=== PATIENT | male | born 1925 | race Caucasian/White ===

== ENCOUNTER 2017-04-10 23:50 | Inpatient (IN) | payer MEDICARE, BC ==
[2017-04-10] MEDS ORDERED: Sodium Chloride 0.9% 10 ML Syringe FLUSH PRN (23:52)
[2017-04-10] MEDS ORDERED: Sodium Chloride 0.9% 2.5 ML Syringe FLUSH PRN (23:52)
[2017-04-11] MEDS ORDERED: Albuterol/Ipratropium 3.0-0.5 MG/3 ML Neb Soln NEB ONE (00:11)
--- NOTE | 2017-04-11 00:34 | EDM.PDOC ---
ED HPI GENERAL MEDICAL PROBLEM - General Chief Complaint: Respiratory Problem Stated Complaint: UNK Time Seen by Provider: 04/10/17 23:57 - History of Present Illness INITIAL COMMENTS - FREE TEXT/NARRATIVE: HISTORY AND PHYSICAL: History of present illness: Patient is 89-year-old white male sent from [place] with cough shortness of breath and hypoxemia he has advanced dementia and is extremely poor historian is been no reported vomiting diarrhea or other complaints Review of systems: As per history of present illness and below otherwise all systems reviewed and negative. Past medical history: As per history of present illness and as reviewed below otherwise noncontributory. Surgical history: As per history of present illness and as reviewed below otherwise noncontributory. Social history: No reported history of drug or alcohol abuse. Family history: As per history of present illness and as reviewed below otherwise noncontributory. Physical exam: HEENT: Atraumatic, normocephalic, pupils reactive, negative for conjunctival pallor or scleral icterus, mucous membranes moist, throat clear, neck supple, nontender, trachea midline. Lungs: Coarse with scattered rhonchi rare wheezing noted, breath sounds equal bilaterally, chest nontender. Heart: S1S2, regular, negative for clicks, rubs, or JVD. Abdomen: Soft, nondistended, nontender. Negative for masses or hepatosplenomegaly. Negative for costovertebral tenderness. Pelvis: Stable nontender. Genitourinary: Deferred. Rectal: Deferred. Extremities: Atraumatic, negative for cords or calf pain. Neurovascular unremarkable. Neuro: Awake, alert, moves all extremities limited but grossly nonfocal exam Diagnostics: CBC CMP troponin EKG chest x-ray influenza screen blood culture 2 BNP UA urine culture sensitivity Therapeutics: IV O2 monitor albuterol ipratropium nebulizer Impression: #1 dyspnea #2 hypoxemia #3 DNR Definitive disposition and diagnosis as appropriate pending reevaluation and review of above. - Related Data Allergies Allergy/AdvReac Type Severity Reaction Status Date / Time No Known Allergies Allergy Verified 06/26/13 09:08 Home Meds: Home Meds Acetaminophen [Tylenol] 650 mg PO Q4H PRN 04/11/17 [History] Bisacodyl 0 mg RC 04/11/17 [History] amLODIPine Besylate [Amlodipine Besylate] 5 mg PO DAILY 04/11/17 [History] ED ROS GENERAL - Review of Systems Review Of Systems: ROS reveals no pertinent complaints other than HPI. ED EXAM, GENERAL - Physical Exam Exam: See Below (See dictation) Course - Vital Signs Last Recorded V/S: Last Vital Signs Temp 36.3 C 04/11/17 01:30 Pulse 88 04/11/17 01:30 Resp 20 04/11/17 01:30 BP 101/65 04/11/17 01:30 Pulse Ox 94 L 04/11/17 01:30 - Orders/Labs/Meds Orders: Active Orders 24 hr Category Date Time Status Cardiac Monitoring [RC] . DIRECTED Care 04/10/17 23:52 Active EKG Documentation Completion [RC] STAT Care 04/10/17 23:52 Active Oxygen Therapy [RC] ASDIRECTED Care 04/10/17 23:52 Active Pulse Oximetry [RC] ASDIRECTED Care 04/10/17 23:52 Active RT Aerosol Therapy [RC] ASDIRECTED Care 04/11/17 00:11 Active Chest 1V Frontal [CR] Stat Exams 04/10/17 23:52 Taken CULTURE BLOOD [BC] Stat Lab 04/10/17 23:59 Results CULTURE URINE [RM] Stat Lab 04/10/17 23:57 Uncollected UA W/MICROSCOPIC [URIN] Stat Lab 04/10/17 23:52 Uncollected Levofloxacin/Dextrose 5%-Water [Levaquin in D5W 750 MG/ Med 04/11/17 01:52 Active 150 ML] 750 mg Premix Bag 1 bag IV ONETIME Sodium Chloride 0.9% [Saline Flush] Med 04/10/17 23:52 Active 10 ml FLUSH ASDIRECTED PRN Sodium Chloride 0.9% [Saline Flush] Med 04/10/17 23:52 Active 2.5 ml FLUSH ASDIRECTED PRN Blood Culture x2 Reflex Set [OM.PC] Stat Oth 04/10/17 23:56 Ordered Saline Lock Insert [OM.PC] Stat Oth 04/10/17 23:52 Ordered Medication Orders Levofloxacin/Dextrose 750 mg/ (Premix) 150 mls @ 100 mls/hr IV ONETIME ONE Stop: 04/11/17 03:21 Sodium Chloride (Saline Flush) 10 ml FLUSH ASDIRECTED PRN PRN Reason: Keep Vein Open Sodium Chloride (Saline Flush) 2.5 ml FLUSH ASDIRECTED PRN PRN Reason: Keep Vein Open Labs: Laboratory Tests 04/11/17 04/11/17 04/11/17 Range/Units 00:00 00:00 00:00 WBC 15.67 H (4.0-11.0) K/uL RBC 3.89 L (4.50-5.90) M/uL Hgb 11.8 L (13.0-17.0) g/dL Hct 35.8 L (38.0-50.0) % MCV 92.0 (80.0-98.0) fL MCH 30.3 (27.0-32.0) pg MCHC 33.0 (31.0-37.0) g/dL RDW Std Deviation 46.1 (28.0-62.0) fl RDW Coeff of Eladio 14 (11.0-15.0) % Plt Count 325 (150-400) K/uL MPV 9.50 (7.40-12.00) fL Neut % (Auto) 82.9 H (48.0-80.0) % Lymph % (Auto) 7.2 L (16.0-40.0) % Armstrong % (Auto) 9.5 (0.0-15.0) % Eos % (Auto) 0.3 (0.0-7.0) % Baso % (Auto) 0.1 (0.0-1.5) % Neut # (Auto) 13.0 H (1.4-5.7) K/uL Lymph # (Auto) 1.1 (0.6-2.4) K/uL Armstrong # (Auto) 1.5 H (0.0-0.8) K/uL Eos # (Auto) 0.1 (0.0-0.7) K/uL Baso # (Auto) 0.0 (0.0-0.1) K/uL Nucleated RBC % 0.0 /100WBC Nucleated RBCs # 0 K/uL INR 1.16 D-Dimer, Quantitative 0.99 H (0.0-0.52) mg/LFEU Sodium 135 L (136-146) mmol/L Potassium 4.4 (3.5-5.1) mmol/L Chloride 105 (98-110) mmol/L Carbon Dioxide 20 L (21-31) mmol/L BUN 33 H (6.0-23.0) mg/dL Creatinine 1.3 (0.6-1.5) mg/dL Est Cr Clr Drug Dosing TNP Estimated GFR (MDRD) 52.0 ml/min Glucose 135 H (60-110) mg/dL Calcium 8.4 L (8.8-10.8) mg/dL Total Bilirubin 0.6 (0.1-1.5) mg/dL AST 20 (5-40) IU/L ALT 18 (8-54) IU/L Alkaline Phosphatase 98 (40-150) Troponin I < 0.10 (0.0-0.29) NG/ML B-Natriuretic Peptide (<100) PG/ML Total Protein 6.9 (6.0-8.0) g/dL Albumin 3.4 (3.4-4.8) g/dL Globulin 3.5 (2.0-3.5) g/dL Albumin/Globulin Ratio 1.0 L (1.3-2.8) 04/11/17 Range/Units 00:00 WBC (4.0-11.0) K/uL RBC (4.50-5.90) M/uL Hgb (13.0-17.0) g/dL Hct (38.0-50.0) % MCV (80.0-98.0) fL MCH (27.0-32.0) pg MCHC (31.0-37.0) g/dL RDW Std Deviation (28.0-62.0) fl RDW Coeff of Eladio (11.0-15.0) % Plt Count (150-400) K/uL MPV (7.40-12.00) fL Neut % (Auto) (48.0-80.0) % Lymph % (Auto) (16.0-40.0) % Armstrong % (Auto) (0.0-15.0) % Eos % (Auto) (0.0-7.0) % Baso % (Auto) (0.0-1.5) % Neut # (Auto) (1.4-5.7) K/uL Lymph # (Auto) (0.6-2.4) K/uL Armstrong # (Auto) (0.0-0.8) K/uL Eos # (Auto) (0.0-0.7) K/uL Baso # (Auto) (0.0-0.1) K/uL Nucleated RBC % /100WBC Nucleated RBCs # K/uL INR D-Dimer, Quantitative (0.0-0.52) mg/LFEU Sodium (136-146) mmol/L Potassium (3.5-5.1) mmol/L Chloride (98-110) mmol/L Carbon Dioxide (21-31) mmol/L BUN (6.0-23.0) mg/dL Creatinine (0.6-1.5) mg/dL Est Cr Clr Drug Dosing Estimated GFR (MDRD) ml/min Glucose (60-110) mg/dL Calcium (8.8-10.8) mg/dL Total Bilirubin (0.1-1.5) mg/dL AST (5-40) IU/L ALT (8-54) IU/L Alkaline Phosphatase (40-150) Troponin I (0.0-0.29) NG/ML B-Natriuretic Peptide 468 H (<100) PG/ML Total Protein (6.0-8.0) g/dL Albumin (3.4-4.8) g/dL Globulin (2.0-3.5) g/dL Albumin/Globulin Ratio (1.3-2.8) Meds: Medications Generic Name Dose Route Start Last Admin Trade Name Freq PRN Reason Stop Dose Admin Levofloxacin/Dextrose 750 mg/ 150 mls @ 100 mls/hr 04/11/17 01:52 Premix IV 04/11/17 03:21 ONETIME ONE Sodium Chloride 10 ml 04/10/17 23:52 Saline Flush FLUSH ASDIRECTED PRN Keep Vein Open Sodium Chloride 2.5 ml 04/10/17 23:52 Saline Flush FLUSH ASDIRECTED PRN Keep Vein Open Discontinued Medications Generic Name Dose Route Start Last Admin Trade Name Freq PRN Reason Stop Dose Admin Albuterol/Ipratropium 3 ml 04/11/17 00:11 04/11/17 00:17 Duoneb 3.0-0.5 Mg/3 Ml NEB 04/11/17 00:12 3 ml ONETIME ONE Administration Departure - Departure Time of Disposition: 02:18 Disposition: Admitted As Inpatient 68 Condition: Good Clinical Impression: Hypoxemia, Pneumonia - Discharge Information Referrals: PCP,Unknown [Primary Care Provider] - Forms: ED Department Discharge - My Orders Last 24 Hours: My Active Orders 04/10/17 23:52 Cardiac Monitoring [RC] . DIRECTED EKG Documentation Completion [RC] STAT Oxygen Therapy [RC] ASDIRECTED Pulse Oximetry [RC] ASDIRECTED Chest 1V Frontal [CR] Stat UA W/MICROSCOPIC [URIN] Stat Sodium Chloride 0.9% [Saline Flush] 10 ml FLUSH ASDIRECTED PRN Sodium Chloride 0.9% [Saline Flush] 2.5 ml FLUSH ASDIRECTED PRN Saline Lock Insert [OM.PC] Stat 04/10/17 23:56 Blood Culture x2 Reflex Set [OM.PC] Stat 04/10/17 23:57 CULTURE URINE [RM] Stat 04/10/17 23:59 CULTURE BLOOD [BC] Stat 04/11/17 00:11 RT Aerosol Therapy [RC] ASDIRECTED 04/11/17 01:52 Levofloxacin/Dextrose 5%-Water [Levaquin in D5W 750 MG/150 ML] 750 mg Premix Bag 1 bag IV ONETIME - Assessment/Plan Last 24 Hours: My Active Orders 04/10/17 23:52 Cardiac Monitoring [RC] . DIRECTED EKG Documentation Completion [RC] STAT Oxygen Therapy [RC] ASDIRECTED Pulse Oximetry [RC] ASDIRECTED Chest 1V Frontal [CR] Stat UA W/MICROSCOPIC [URIN] Stat Sodium Chloride 0.9% [Saline Flush] 10 ml FLUSH ASDIRECTED PRN Sodium Chloride 0.9% [Saline Flush] 2.5 ml FLUSH ASDIRECTED PRN Saline Lock Insert [OM.PC] Stat 04/10/17 23:56 Blood Culture x2 Reflex Set [OM.PC] Stat 04/10/17 23:57 CULTURE URINE [RM] Stat 04/10/17 23:59 CULTURE BLOOD [BC] Stat 04/11/17 00:11 RT Aerosol Therapy [RC] ASDIRECTED 04/11/17 01:52 Levofloxacin/Dextrose 5%-Water [Levaquin in D5W 750 MG/150 ML] 750 mg Premix Bag 1 bag IV ONETIME
[2017-04-11 00:53] LABS: CHLORIDE,CL 105 mmol/L (98-110); SODIUM,NA 135 mmol/L (136-146)
[2017-04-11] MEDS ORDERED: Levofloxacin/Dextrose 5%-Water 750 MG in Premix Bag 1 BAG IV ONE (01:52)
[2017-04-11] MEDS ORDERED: Furosemide 40 MG/4 ML VIAL IVPUSH ONE (02:24)
[2017-04-11] MEDS ORDERED: Sodium Chloride 0.9% 1,000 ML IV SCH (03:45)
[2017-04-11] MEDS ORDERED: Piperacillin/Tazobactam 4.5 GM in Sodium Chloride 0.9% 100 ML IV SCH (08:15)
[2017-04-11] MEDS: Piperacillin/Tazobactam 3.375 GM in Sodium Chloride 0.9% 50 ML IV SCH ×3 (08:45→20:15)
[2017-04-11] MEDS: Albuterol/Ipratropium 3.0-0.5 MG/3 ML Neb Soln NEB SCH ×5 (08:45→23:07)
--- NOTE | 2017-04-11 13:11 | US ---
Lower extremity venous Doppler Bilateral lower extremity venous Doppler was performed demonstrating normal augmentation and spontane ity phasicity and absent pulsatility of lower cavity veins with no thrombosis. There are small Lewis' s cysts bilaterally that on the right measuring 3.9 x 1.7 cm and that on the left measuring 5.1 x 1.8 cm Impression: No evidence of deep vein thrombosis. Bilateral Lewis's cysts
[2017-04-11] MEDS ORDERED: Sodium Chloride 0.9% 500 ML IV ONE (14:30)
[2017-04-11] MEDS ORDERED: Sodium Chloride 0.9% 500 ML IV SCH (14:30)
[2017-04-11] MEDS ORDERED: LORazepam 2 MG/ML SDV IVPUSH ONE (14:47)
--- NOTE | 2017-04-11 15:20 | PCM.HP ---
H&P History of Present Illness - General Date of Service: 04/11/17 Source of Information: Patient History Limitations: Reports: Altered Mental Status - History of Present Illness Initial Comments - Free Text/Narative: 89-year-old male [facility] resident and represented to the emergency department with shortness of breath found to be hypoxic and tachycardic, tachypneic. History gathering is limited secondary to the patient's baseline dementia. When asked, patient told nursing staff of ongoing shortness of breath , left lower extremity pain when touched. Patient was placed on telemetry, indicating atrial fibrillation. EKG is pending. Talking to the patient at the bedside, he denies any fevers chills, pain. He does appear to be confused and is able to minimally answer questions. Does not appear to be in any acute distress. ER workup: Leukocytosis white blood cell count 15.67 Mild anemia 11.8 hemoglobin Elevated d-dimer at 0.99 Elevated BUNs 33. Creatinine 1.3 Calcium 8.4 BNP 468 Urinalysis positive for UTI Chest x-ray indicates a left lower lobe pneumonia. Right Leg Pain Score (Numeric/FACES): 4 - Related Data Allergies/Adverse Reactions: Allergies Allergy/AdvReac Type Severity Reaction Status Date / Time No Known Allergies Allergy Verified 06/26/13 09:08 Home Medications: Home Meds Acetaminophen 650 mg PO DAILY 04/11/17 [History] Acetaminophen [Tylenol] 650 mg PO Q4H PRN 04/11/17 [History] Bisacodyl 0 mg RC 04/11/17 [History] Glucosamine Sulfate 500 mg PO BID 04/11/17 [History] Levothyroxine Sodium [Synthroid] 100 mcg PO DAILY 04/11/17 [History] Loperamide HCl [Imodium A-D] 2 mg PO ASDIRECTED 04/11/17 [History] Losartan/Hydrochlorothiazide [Losartan-HCTZ 100-25 MG] 1 each PO DAILY 04/11/17 [History] Lutein/Min/Vit C/Vit E Acetate [Ocuvite Lutein] 1 cap PO DAILY 04/11/17 [History ] Magnesium Hydroxide [Milk of Magnesia] 30 ml PO DAILY PRN 04/11/17 [History] Potassium Chloride [place] Er 04/11/17 [History] amLODIPine Besylate [Amlodipine Besylate] 5 mg PO DAILY 04/11/17 [History] Past Medical History HEENT History: Reports: Hard of Hearing, Impaired Vision, Other (See Below) Other HEENT History: Conjunctivitis. Macular Degenaration. on Hearing Aid Cardiovascular History: Reports: Hypertension Respiratory History: Reports: None Gastrointestinal History: Reports: None Genitourinary History: Reports: None Musculoskeletal History: Reports: Osteoarthritis, Other (See Below) Other Musculoskeletal History: gait & mobility abnormalities Neurological History: Reports: Other (See Below) Other Neuro History: Dementia Psychiatric History: Reports: Dementia Endocrine/Metabolic History: Reports: Hypothyroidism Hematologic History: Reports: None Immunologic History: Reports: None Oncologic (Cancer) History: Reports: None Dermatologic History: Reports: None - Infectious Disease History Infectious Disease History: Reports: Other (See Below) Other Infectious Disease History: July't remember Social & Family History - Family History Family Medical History: Noncontributory - Tobacco Use Smoking Status *Q: Unknown Ever Smoked Tobacco Use Comment: Patient has dementia. Second Hand Smoke Exposure: No - Recreational Drug Use Recreational Drug Use: No H&P Review of Systems - Review of Systems: Review Of Systems: Unable To Obtain Exam - Exam Exam: See Below - Vital Signs Vital Signs: Last Vital Signs Temp 36.8 C 04/11/17 08:00 Pulse 109 H 04/11/17 08:00 Resp 20 04/11/17 08:00 BP 109/69 04/11/17 08:00 Pulse Ox 91 L 04/11/17 08:00 Weight: 73 kg - Exam Quality Assessment: Supplemental Oxygen General: Alert, Oriented, Cooperative HEENT: Conjunctiva Clear, Hearing Intact, Mucosa Moist & [place], TMs Clear Neck: Supple, Trachea Midline Lungs: Decreased Breath Sounds Cardiovascular: Regular Rate, Normal S1, Normal S2 GI/Abdominal Exam: Normal Bowel Sounds, Soft Back Exam: Normal Inspection Extremities: Normal Inspection, Normal Range of Motion, Non-Tender, Pedal Edema Skin: Warm Neurological: Cranial Nerves Intact Neuro Extensive - Mental Status: Alert, Oriented x3 Psychiatric: Alert, Normal Affect, Normal Mood - Patient Data Lab Results Last 24 hrs: Laboratory Results - last 24 hr 04/11/17 04/11/17 Range/Units 04:02 13:45 Lactate 1.4 (0.20-2.00) mmol/L Urine Color YELLOW Urine Appearance CLEAR Urine pH 5.5 (5.0-8.0) Ur Specific [place] 1.010 (1.001-1.035) Urine Protein TRACE (NEGATIVE) mg/dL Urine Glucose (UA) NEGATIVE (NEGATIVE) mg/dL Urine Ketones NEGATIVE (NEGATIVE) mg/dL Urine Occult Blood LARGE H (NEGATIVE) Urine Nitrite POSITIVE H (NEGATIVE) Urine Bilirubin NEGATIVE (NEGATIVE) Urine Urobilinogen 0.2 (<2.0) EU/dL Ur Leukocyte Esterase MODERATE (NEGATIVE) Urine RBC 1-3 (0-2/HPF) Urine WBC 80-120 (0-5/HPF) Ur Epithelial Cells NOT SEEN (NONE-FEW) Urine Bacteria 2+ H (NEGATIVE) Result Diagrams: 04/11/17 00:00 04/11/17 00:00 *Q Meaningful Use (ADM) - VTE *Q VTE Criteria *Q: - Stroke *Q Stroke Criteria *Q: - AMI *Q AMI Criteria *Q: Problem List Initiated/Reviewed/Updated: Yes Orders Last 24hrs: Active Orders 24 hr Category Date Time Status RT Aerosol Therapy [RC] ASDIRECTED Care 04/11/17 08:06 Active Telemetry Monitoring [Cardiac Monitoring] [RC] . Care 04/11/17 13:33 Active DIRECTED Regular Diet [DIET] Diet 04/11/17 Breakfast Active Ang Chest [CT] Stat Exams 04/11/17 13:36 Ordered VANCOMYCIN TROUGH [CHEM] Routine Lab 04/13/17 08:00 Ordered Albuterol/Ipratropium [DuoNeb 3.0-0.5 MG/3 ML] Med 04/11/17 08:06 Active 3 ml NEB Q4HRRT Levofloxacin/Dextrose 5%-Water [Levaquin in D5W 750 MG/ Med 04/12/17 12:00 Active 150 ML] 750 mg Premix Bag 1 bag IV Q48H Piperacillin/Tazobactam [Piperacil-Tazobact] 3.375 gm Med 04/11/17 08:15 Active Sodium Chloride 0.9% [Normal Saline] 50 ml IV Q6H Sodium Chloride 0.9% [Normal Saline] 500 ml Med 04/11/17 14:30 Active IV ASDIRECTED Vancomycin Pharmacy to Dose [Pharmacy to Dose - Med 04/11/17 08:15 Active Vancomycin] 1 dose .XX ASDIRECTED Vancomycin [Vancocin] 1 gm Med 04/11/17 09:00 Active Sodium Chloride 0.9% [Normal Saline] 250 ml IV Q12H Medication Orders Albuterol/Ipratropium (Duoneb 3.0-0.5 Mg/3 Ml) 3 ml NEB Q4HRRT COUNTS INCLUDE 234 BEDS AT THE [facility] Last Admin: 04/11/17 10:24 Dose: 3 ml Admin: 04/11/17 08:45 Dose: 3 ml Levofloxacin/Dextrose 750 mg/ (Premix) 150 mls @ 100 mls/hr IV Q48H COUNTS INCLUDE 234 BEDS AT THE [facility] Piperacillin Sod/Tazobactam (Sod 3.375 gm/ Sodium Chloride) 50 mls @ 50 mls/hr IV Q6H COUNTS INCLUDE 234 BEDS AT THE [facility] Last Admin: 04/11/17 08:45 Dose: 50 mls/hr Vancomycin HCl 1 gm/ Sodium (Chloride) 250 mls @ 166.667 mls/hr IV Q12H COUNTS INCLUDE 234 BEDS AT THE [facility] Last Admin: 04/11/17 09:55 Dose: 166.667 mls/hr Sodium Chloride (Normal Saline) 500 mls @ 500 mls/hr IV ASDIRECTED COUNTS INCLUDE 234 BEDS AT THE [facility] Sodium Chloride (Saline Flush) 10 ml FLUSH ASDIRECTED PRN PRN Reason: Keep Vein Open Sodium Chloride (Saline Flush) 2.5 ml FLUSH ASDIRECTED PRN PRN Reason: Keep Vein Open Vancomycin HCl (Pharmacy To Dose - Vancomycin) 1 dose .XX ASDIRECTED COUNTS INCLUDE 234 BEDS AT THE [facility] Assessment/Plan Comment:: Assessment: #1. Acute hypoxic respiratory failure secondary to pneumonia, CHF #2. UTI #3. Leukocytosis secondary to 1 and 2 #4. Elevated d-dimer #5. Elevated BNP secondary to CHF exacerbation #6. hypotension #7. A. Fibrillation Plan: #1. Admit to the ICU. Cardiac telemetry. Vital signs per floor routine. Regular diet. Telemetry showed atrial fibrillation will obtain a EKG. It doesnt appear that he has chronic A. Fib according to the chart. Will try to compare to old EKG. Consider digoxin. #2. IV Vancomycin, Levofloxacin, Zosyn for pneumonia, uti #3. Wells criteria indicates 1.5 points, indicating low likelihood of PE. A CT angiogram will not be ordered. #4. Hold off on lasix scheduling given hypotension, tachycardia. Will try to diurese based on clinical picture.
[2017-04-11] MEDS ORDERED: Digoxin 500 MCG/2 ML Amp IVPUSH ONE (15:50)
--- NOTE | 2017-04-11 17:14 | CR ---
EXAM DATE: 04/11/17 PATIENT'S AGE: 89 Patient: KUNAL VALDIVIA Facility: [place], [place] Site . Site : [id number] Study: XRay Chest [id number]/29/[id number] 1:05:52 AM Ordering Physician: Doctor Salcedo Final Report: INDICATION: Shortness of breath TECHNIQUE: Chest radiograph 1 view COMPARISON: None FINDINGS: Mediastinum: Moderate cardiomegaly is present with pulmonary vascular congestion. The mediastinum is normal in appearance. Lungs: Consolidation in the left lung base is present with small left pleural effusion. No pneumothorax is identified. Bones and soft tissue: Unremarkable for age. IMPRESSION: 1. Consolidation in the left lung base is present with small left pleural effusion. These findings can be seen with atelectasis and/or pneumonia. Dictated by Gerhard Washington MD @ 04/11/2017 1:13:24 AM Dictated by: Gerhard Washington MD @ 04/11/2017 01:13:29 (Electronic Signature) Report Signed by Proxy. CINTHYA
[2017-04-11] MEDS: Enoxaparin 40 MG/0.4 ML Syringe SUBCUT SCH (19:25)
[2017-04-12] MEDS: Albuterol/Ipratropium 3.0-0.5 MG/3 ML Neb Soln NEB SCH ×6 (01:55→21:26)
[2017-04-12] MEDS: Piperacillin/Tazobactam 3.375 GM in Sodium Chloride 0.9% 50 ML IV SCH ×4 (02:00→20:48)
[2017-04-12] MEDS ORDERED: Digoxin 500 MCG/2 ML Amp IVPUSH ONE (09:14)
--- NOTE | 2017-04-12 09:34 | CR ---
Portable chest History: Dyspnea Comparison: April 11 chest x-ray Findings: There is cardiomegaly left pleural effusion basal atelectasis probable small right effusion and increased caliber of upper lobe pulmonary vessels. Although there is some atelectasis at the lef t base the aggregate findings are most consistent with congestive heart failure. Impression: Congestive heart failure with increasing left effusion
[2017-04-12] MEDS ORDERED: Furosemide 40 MG Tab PO ONE (11:27)
[2017-04-12] MEDS ORDERED: Magnesium Sulfate/Water 4 GM in Premix Bag 1 BAG IV ONE (11:27)
[2017-04-12] MEDS ORDERED: Potassium Chloride 20 MEQ Tab.ER PO ONE (11:58)
[2017-04-12] MEDS ORDERED: Levofloxacin/Dextrose 5%-Water 750 MG in Premix Bag 1 BAG IV SCH (12:00)
--- NOTE | 2017-04-12 14:10 | PCM.PN ---
- General Info Date of Service: 04/12/17 Subjective Update: Patient's transfer status appears to be worsening given that he is now on 7 L high flow. The patient has baseline dementia so it's difficult to get much out of him. He tells me that he is doing completely fine for his age. He denies shortness of breath, chest pain or any complaints at all. Repeat chest x-ray shows an increase in left pleural effusion. - Review of Systems General: Reports: Other (See history of present illness. Limited review of systems secondary to dementia) - Patient Data Vitals - Most Recent: Last Vital Signs Temp 36.4 C 04/12/17 11:08 Pulse 84 04/12/17 11:08 Resp 20 04/12/17 11:08 BP 124/76 04/12/17 11:08 Pulse Ox 94 L 04/12/17 11:08 Weight - Most Recent: 73 kg I&O - Last 24 Hours: Intake & Output 04/11/17 04/12/17 04/12/17 22:59 06:59 14:59 Intake Total 1300 600 550 Balance 1300 600 550 Lab Results Last 24 Hours: Laboratory Results - last 24 hr 04/12/17 04/12/17 04/12/17 Range/Units 05:22 05:22 05:22 WBC 11.18 H (4.0-11.0) K/uL RBC 3.61 L (4.50-5.90) M/uL Hgb 10.8 L (13.0-17.0) g/dL Hct 32.7 L (38.0-50.0) % MCV 90.6 (80.0-98.0) fL MCH 29.9 (27.0-32.0) pg MCHC 33.0 (31.0-37.0) g/dL RDW Std Deviation 46.0 (28.0-62.0) fl RDW Coeff of Eladio 14 (11.0-15.0) % Plt Count 259 (150-400) K/uL MPV 9.30 (7.40-12.00) fL Neut % (Auto) 74.1 (48.0-80.0) % Lymph % (Auto) 12.3 L (16.0-40.0) % [place] % (Auto) 12.8 (0.0-15.0) % Eos % (Auto) 0.5 (0.0-7.0) % Baso % (Auto) 0.3 (0.0-1.5) % Neut # (Auto) 8.3 H (1.4-5.7) K/uL Lymph # (Auto) 1.4 (0.6-2.4) K/uL [place] # (Auto) 1.4 H (0.0-0.8) K/uL Eos # (Auto) 0.1 (0.0-0.7) K/uL Baso # (Auto) 0.0 (0.0-0.1) K/uL Nucleated RBC % 0.0 /100WBC Nucleated RBCs # 0 K/uL Sodium 137 (136-146) mmol/L Potassium 3.9 (3.5-5.1) mmol/L Chloride 107 (98-110) mmol/L Carbon Dioxide 20 L (21-31) mmol/L BUN 33 H (6.0-23.0) mg/dL Creatinine 1.4 (0.6-1.5) mg/dL Est Cr Clr Drug Dosing 36.93 mL/min Estimated GFR (MDRD) 47.7 ml/min Glucose 83 (60-110) mg/dL Calcium 7.9 L (8.8-10.8) mg/dL Magnesium 1.4 L (1.5-2.3) mEq/L Med Orders - Current: Current Medications Albuterol/Ipratropium (Duoneb 3.0-0.5 Mg/3 Ml) 3 ml NEB Q4HRRT [facility] Last Admin: 04/12/17 13:17 Dose: 3 ml Enoxaparin Sodium (Lovenox) 40 mg SUBCUT Q24H [facility] Last Admin: 04/11/17 19:25 Dose: 40 mg Levofloxacin/Dextrose 750 mg/ (Premix) 150 mls @ 100 mls/hr IV Q48H [facility] Last Admin: 04/12/17 12:18 Dose: 100 mls/hr Piperacillin Sod/Tazobactam (Sod 3.375 gm/ Sodium Chloride) 50 mls @ 50 mls/hr IV Q6H [facility] Last Admin: 04/12/17 08:02 Dose: 50 mls/hr Vancomycin HCl 1 gm/ Sodium (Chloride) 250 mls @ 166.667 mls/hr IV Q12H [facility] Last Admin: 04/12/17 09:02 Dose: 166.667 mls/hr Magnesium Sulfate 4 gm/ Premix 100 mls @ 25 mls/hr IV ONETIME ONE Stop: 04/12/17 15:26 Last Admin: 04/12/17 11:54 Dose: 25 mls/hr Sodium Chloride (Saline Flush) 10 ml FLUSH ASDIRECTED PRN PRN Reason: Keep Vein Open Sodium Chloride (Saline Flush) 2.5 ml FLUSH ASDIRECTED PRN PRN Reason: Keep Vein Open Vancomycin HCl (Pharmacy To Dose - Vancomycin) 1 dose .XX ASDIRECTED [facility] Discontinued Medications Albuterol/Ipratropium (Duoneb 3.0-0.5 Mg/3 Ml) 3 ml NEB ONETIME ONE Stop: 04/11/17 00:12 Last Admin: 04/11/17 00:17 Dose: 3 ml Digoxin (Lanoxin) 250 mcg IVPUSH ONETIME ONE Stop: 04/11/17 15:51 Last Admin: 04/11/17 15:59 Dose: 250 mcg Digoxin (Lanoxin) 250 mcg IVPUSH ONETIME ONE Stop: 04/12/17 09:15 Last Admin: 04/12/17 09:49 Dose: 250 mcg Furosemide (Lasix) 20 mg IVPUSH NOW ONE Stop: 04/11/17 02:25 Last Admin: 04/11/17 02:40 Dose: 20 mg Furosemide (Lasix) 40 mg PO ONETIME ONE Stop: 04/12/17 11:28 Last Admin: 04/12/17 11:54 Dose: 40 mg Levofloxacin/Dextrose 750 mg/ (Premix) 150 mls @ 100 mls/hr IV ONETIME ONE Stop: 04/11/17 03:21 Last Admin: 04/11/17 02:15 Dose: 100 mls/hr Sodium Chloride (Normal Saline) 1,000 mls @ 125 mls/hr IV ASDIRECTED [facility] Last Admin: 04/11/17 04:16 Dose: 125 mls/hr Piperacillin Sod/Tazobactam (Sod 4.5 gm/ Sodium Chloride) 100 mls @ 100 mls/hr IV Q6H [facility] Sodium Chloride (Normal Saline) 500 mls @ 500 mls/hr IV ONETIME ONE Stop: 04/11/17 15:29 Last Admin: 04/11/17 14:30 Dose: 500 mls/hr Lorazepam (Ativan) 1 mg IVPUSH ONETIME ONE Stop: 04/11/17 14:48 Last Admin: 04/11/17 15:50 Dose: Not Given Potassium Chloride (Klor-Con M20) 40 meq PO ONETIME ONE Stop: 04/12/17 11:59 Last Admin: 04/12/17 12:37 Dose: 40 meq - Exam Quality Assessment: Supplemental Oxygen General: Alert HEENT: Pupils Equal, Pupils Reactive Neck: Supple Lungs: Decreased Breath Sounds Cardiovascular: Regular Rate, Regular Rhythm GI/Abdominal Exam: Normal Bowel Sounds, Soft Extremities: Pedal Edema (Trace) Peripheral Pulses: 3+: Posterior Tibial (L), Posterior Tibial (R) Psy/Mental Status: Alert, Normal Affect, Normal Mood - Problem List Review Problem List Initiated/Reviewed/Updated: Yes - My Orders Last 24 Hours: My Active Orders 04/11/17 13:33 Telemetry Monitoring [Cardiac Monitoring] [RC] . DIRECTED 04/11/17 15:33 Code Status [Resuscitation Status] Routine 04/11/17 19:00 Enoxaparin [Lovenox] 40 mg SUBCUT Q24H 04/12/17 11:27 Magnesium Sulfate/Water [Magnesium Sulfate 4 GM in Water 100 ML] 4 gm Premix Bag 1 bag IV ONETIME - Plan Plan:: Assessment: #1. Acute hypoxic respiratory failure secondary to pneumonia, CHF with a worsening left-sided pleural effusion #2. UTI #3. Leukocytosis secondary to 1 and 2 #4. hypotension #5. A. Fibrillation Plan: #1. In regards to his atrial fibrillation, we will given another one-time dose of IV 250 mcg of digoxin. He received a dose yesterday evening but didn't appear to make much of a difference. #2. Continue IV antibiotics regimen #3. By mouth Lasix 40 mg 1 for CHF/pleural effusion. We'll see if this helps with his respiratory status. Given his hypotension, we will diurese him with caution.
--- NOTE | 2017-04-12 18:04 | PCM.SN ---
- Free Text/Narrative Note: Discussed patients status with daughter in person at the ICU and his other daughter currently in [place] over the phone. Went over the patients current status with them, and given circumstances, daughter in [place] states that Toan would wish not to be resuscitated or use any mechanical ventilation. She stated that he would prefer no CPR, and no intubation.
[2017-04-12] MEDS: Enoxaparin 40 MG/0.4 ML Syringe SUBCUT SCH (18:21)
[2017-04-13] MEDS: Albuterol/Ipratropium 3.0-0.5 MG/3 ML Neb Soln NEB SCH ×6 (02:58→23:26)
[2017-04-13] MEDS: Piperacillin/Tazobactam 3.375 GM in Sodium Chloride 0.9% 50 ML IV SCH (02:59)
[2017-04-13] MEDS ORDERED: Magnesium Sulfate/Water 2 GM in Premix Bag 1 BAG IV ONE (07:54)
[2017-04-13] MEDS ORDERED: Furosemide 40 MG Tab PO ONE (07:59)
[2017-04-13] MEDS ORDERED: Ciprofloxacin in D5W 400 MG in Premix Bag 1 BAG IV SCH ×2 (08:00)
[2017-04-13] MEDS: Levofloxacin 250 MG Tab PO SCH (10:30)
--- NOTE | 2017-04-13 11:04 | PCM.PN ---
- General Info Date of Service: 04/13/17 Subjective Update: 89-year-old male in ICU right now with ongoing acute hypoxic respiratory failure requiring more oxygen via nasal cannula. Patient does not appear to be in any acute distress. The last 24 hours, an echocardiogram was obtained, a repeat chest x-ray shows worsening pleural effusion, blood cultures are positive for Escherichia coli. This morning at the bedside, patient does have dementia but he did states that he feels comfortable right now. - Review of Systems General: Reports: Other (baseline dementia. Difficult to obtain a full review of systems. Does not appear to be in any acute pain or distress.) - Patient Data Vitals - Most Recent: Last Vital Signs Temp 36.4 C 04/13/17 08:00 Pulse 108 H 04/13/17 08:00 Resp 21 H 04/13/17 08:00 BP 128/78 04/13/17 08:00 Pulse Ox 95 04/13/17 08:00 Weight - Most Recent: 73 kg I&O - Last 24 Hours: Intake & Output 04/12/17 04/13/17 04/13/17 22:59 06:59 14:59 Intake Total 900 100 50 Balance 900 100 50 Lab Results Last 24 Hours: Laboratory Results - last 24 hr 04/12/17 04/13/17 04/13/17 Range/Units 05:22 05:17 05:17 WBC 9.45 (4.0-11.0) K/uL RBC 3.69 L (4.50-5.90) M/uL Hgb 10.9 L (13.0-17.0) g/dL Hct 33.3 L (38.0-50.0) % MCV 90.2 (80.0-98.0) fL MCH 29.5 (27.0-32.0) pg MCHC 32.7 (31.0-37.0) g/dL RDW Std Deviation 45.8 (28.0-62.0) fl RDW Coeff of Eladio 14 (11.0-15.0) % Plt Count 257 (150-400) K/uL MPV 9.10 (7.40-12.00) fL Neut % (Auto) 70.9 (48.0-80.0) % Lymph % (Auto) 11.1 L (16.0-40.0) % [place] % (Auto) 15.6 H (0.0-15.0) % Eos % (Auto) 2.1 (0.0-7.0) % Baso % (Auto) 0.3 (0.0-1.5) % Neut # (Auto) 6.7 H (1.4-5.7) K/uL Lymph # (Auto) 1.1 (0.6-2.4) K/uL [place] # (Auto) 1.5 H (0.0-0.8) K/uL Eos # (Auto) 0.2 (0.0-0.7) K/uL Baso # (Auto) 0.0 (0.0-0.1) K/uL Nucleated RBC % 0.0 /100WBC Nucleated RBCs # 0 K/uL Sodium 138 (136-146) mmol/L Potassium 4.0 (3.5-5.1) mmol/L Chloride 109 (98-110) mmol/L Carbon Dioxide 19 L (21-31) mmol/L BUN 32 H (6.0-23.0) mg/dL Creatinine 1.4 (0.6-1.5) mg/dL Est Cr Clr Drug Dosing 36.93 mL/min Estimated GFR (MDRD) 47.7 ml/min Glucose 92 (60-110) mg/dL Calcium 7.6 L (8.8-10.8) mg/dL Magnesium 1.4 L 1.9 (1.5-2.3) mEq/L [place]th Results Last 24 Hours: Microbiology 04/13/17 09:46 Anaerobic Blood Culture - Final Blood - Venous - Lab Draw 04/13/17 09:34 Anaerobic Blood Culture - Final Blood - Venous 04/11/17 04:02 Urine Culture - Final Urine, Clean Catch MIXED CHANDRA >100,000 CFU/ML Med Orders - Current: Current Medications Albuterol/Ipratropium (Duoneb 3.0-0.5 Mg/3 Ml) 3 ml NEB Q4HRRT [facility] Last Admin: 04/13/17 09:57 Dose: Not Given Enoxaparin Sodium (Lovenox) 40 mg SUBCUT Q24H [facility] Last Admin: 04/12/17 18:21 Dose: 40 mg Levofloxacin (Levaquin) 750 mg PO Q48H [facility] Last Admin: 04/13/17 10:30 Dose: 750 mg Sodium Chloride (Saline Flush) 10 ml FLUSH ASDIRECTED PRN PRN Reason: Keep Vein Open Sodium Chloride (Saline Flush) 2.5 ml FLUSH ASDIRECTED PRN PRN Reason: Keep Vein Open Discontinued Medications Albuterol/Ipratropium (Duoneb 3.0-0.5 Mg/3 Ml) 3 ml NEB ONETIME ONE Stop: 04/11/17 00:12 Last Admin: 04/11/17 00:17 Dose: 3 ml Digoxin (Lanoxin) 250 mcg IVPUSH ONETIME ONE Stop: 04/11/17 15:51 Last Admin: 04/11/17 15:59 Dose: 250 mcg Digoxin (Lanoxin) 250 mcg IVPUSH ONETIME ONE Stop: 04/12/17 09:15 Last Admin: 04/12/17 09:49 Dose: 250 mcg Furosemide (Lasix) 20 mg IVPUSH NOW ONE Stop: 04/11/17 02:25 Last Admin: 04/11/17 02:40 Dose: 20 mg Furosemide (Lasix) 40 mg PO ONETIME ONE Stop: 04/12/17 11:28 Last Admin: 04/12/17 11:54 Dose: 40 mg Furosemide (Lasix) 40 mg PO ONETIME ONE Stop: 04/13/17 08:00 Last Admin: 04/13/17 08:27 Dose: 40 mg Levofloxacin/Dextrose 750 mg/ (Premix) 150 mls @ 100 mls/hr IV ONETIME ONE Stop: 04/11/17 03:21 Last Admin: 04/11/17 02:15 Dose: 100 mls/hr Sodium Chloride (Normal Saline) 1,000 mls @ 125 mls/hr IV ASDIRECTED [facility] Last Admin: 04/11/17 04:16 Dose: 125 mls/hr Levofloxacin/Dextrose 750 mg/ (Premix) 150 mls @ 100 mls/hr IV Q48H [facility] Last Admin: 04/12/17 12:18 Dose: 100 mls/hr Piperacillin Sod/Tazobactam (Sod 4.5 gm/ Sodium Chloride) 100 mls @ 100 mls/hr IV Q6H [facility] Piperacillin Sod/Tazobactam (Sod 3.375 gm/ Sodium Chloride) 50 mls @ 50 mls/hr IV Q6H [facility] Last Admin: 04/13/17 02:59 Dose: 50 mls/hr Vancomycin HCl 1 gm/ Sodium (Chloride) 250 mls @ 166.667 mls/hr IV Q12H [facility] Last Admin: 04/12/17 21:10 Dose: 166.667 mls/hr Sodium Chloride (Normal Saline) 500 mls @ 500 mls/hr IV ONETIME ONE Stop: 04/11/17 15:29 Last Admin: 04/11/17 14:30 Dose: 500 mls/hr Magnesium Sulfate 4 gm/ Premix 100 mls @ 25 mls/hr IV ONETIME ONE Stop: 04/12/17 15:26 Last Admin: 04/12/17 11:54 Dose: 25 mls/hr Magnesium Sulfate 2 gm/ Premix 50 mls @ 50 mls/hr IV ONETIME ONE Stop: 04/13/17 08:53 Last Admin: 04/13/17 08:27 Dose: 50 mls/hr Ciprofloxacin/Dextrose 400 mg/ (Premix) 200 mls @ 200 mls/hr IV Q12H [facility] Last Admin: 04/13/17 09:30 Dose: Not Given Lorazepam (Ativan) 1 mg IVPUSH ONETIME ONE Stop: 04/11/17 14:48 Last Admin: 04/11/17 15:50 Dose: Not Given Potassium Chloride (Klor-Con M20) 40 meq PO ONETIME ONE Stop: 04/12/17 11:59 Last Admin: 04/12/17 12:37 Dose: 40 meq Vancomycin HCl (Pharmacy To Dose - Vancomycin) 1 dose .XX ASDIRECTED [facility] - Exam Quality Assessment: Supplemental Oxygen General: Alert, Oriented HEENT: Pupils Equal Neck: Supple Lungs: Clear to Auscultation, Normal Respiratory Effort Cardiovascular: Regular Rate, Regular Rhythm GI/Abdominal Exam: Normal Bowel Sounds, Soft Extremities: No Pedal Edema Peripheral Pulses: 2+: Posterior Tibial (L), Posterior Tibial (R) Skin: Warm Psy/Mental Status: Alert, Normal Affect, Normal Mood - Problem List Review Problem List Initiated/Reviewed/Updated: Yes - My Orders Last 24 Hours: My Active Orders 04/12/17 18:00 Code Status [Resuscitation Status] Routine 04/12/17 18:15 Tariq Catheter Insertion [Insert Urinary Catheter] [OM.PC] Q24H 01/31/18 Echo Comp wo Cont [US] Urgent 04/13/17 09:19 Blood Culture x2 Reflex Set [OM.PC] Stat 04/13/17 09:30 Levofloxacin [Levaquin] 750 mg PO Q48H 04/13/17 09:34 CULTURE BLOOD [BC] Stat 04/13/17 09:46 CULTURE BLOOD [BC] Stat - Plan Plan:: Assessment: #1. Acute hypoxic respiratory failure secondary to CHF exacerbation with left pleural effusion noted on x-ray #2. blood cultures positive for Escherichia coli #3. Leukocytosis secondary to #2 that has resolved #4. hypotension, tachycardia that is showing mild improvement #5. A. Fibrillation Plan: #1. IV vancomycin and Zosyn and Levaquin have been stopped. He is switched to by mouth Levaquin. Will get repeat blood cultures today. #2. Attempt to insert Tariq catheter for strict I's and O's #3. By mouth 40 mg Lasix once #4. Follow up on echocardiogram
[2017-04-13] MEDS: Enoxaparin 40 MG/0.4 ML Syringe SUBCUT SCH (18:35)
[2017-04-13] MEDS: Bisacodyl 10 MG Supp RECTAL PRN (18:38)
[2017-04-14] MEDS: Albuterol/Ipratropium 3.0-0.5 MG/3 ML Neb Soln NEB SCH ×6 (04:15→21:35)
[2017-04-14] MEDS ORDERED: Magnesium Sulfate/Water 2 GM in Premix Bag 1 BAG IV ONE (07:59)
[2017-04-14] MEDS ORDERED: Furosemide 40 MG Tab PO ONE (08:00)
[2017-04-14] MEDS: Furosemide 40 MG/4 ML VIAL IVPUSH SCH ×2 (09:34→22:34)
--- NOTE | 2017-04-14 17:23 | PCM.PN ---
- General Info Date of Service: 04/14/17 Subjective Update: increase requirement for oxygen supplementation. Patient appears to be disoriented which is his baseline. No acute overnight events reported by nursing. There has been difficulty with placing a Tariq which was ordered secondary to strict I's and O's. Echocardiogram is pending report. - Review of Systems General: Reports: Other (see history of present illness) - Patient Data Vitals - Most Recent: Last Vital Signs Temp 36.9 C 04/14/17 16:00 Pulse 83 04/14/17 16:00 Resp 20 04/14/17 16:00 BP 131/62 04/14/17 16:00 Pulse Ox 93 L 04/14/17 16:00 Weight - Most Recent: 72.575 kg I&O - Last 24 Hours: Intake & Output 04/14/17 04/14/17 04/14/17 06:59 14:59 22:59 Intake Total 20 120 Output Total 755 Balance 20 -635 Lab Results Last 24 Hours: Laboratory Results - last 24 hr 04/14/17 04/14/17 Range/Units 06:27 06:27 WBC 11.38 H (4.0-11.0) K/uL RBC 4.11 L (4.50-5.90) M/uL Hgb 12.2 L (13.0-17.0) g/dL Hct 37.4 L (38.0-50.0) % MCV 91.0 (80.0-98.0) fL MCH 29.7 (27.0-32.0) pg MCHC 32.6 (31.0-37.0) g/dL RDW Std Deviation 46.1 (28.0-62.0) fl RDW Coeff of Eladio 14 (11.0-15.0) % Plt Count 311 (150-400) K/uL MPV 9.20 (7.40-12.00) fL Neut % (Auto) 72.8 (48.0-80.0) % Lymph % (Auto) 12.4 L (16.0-40.0) % [place] % (Auto) 14.1 (0.0-15.0) % Eos % (Auto) 0.4 (0.0-7.0) % Baso % (Auto) 0.3 (0.0-1.5) % Neut # (Auto) 8.3 H (1.4-5.7) K/uL Lymph # (Auto) 1.4 (0.6-2.4) K/uL [place] # (Auto) 1.6 H (0.0-0.8) K/uL Eos # (Auto) 0.1 (0.0-0.7) K/uL Baso # (Auto) 0.0 (0.0-0.1) K/uL Nucleated RBC % 0.0 /100WBC Nucleated RBCs # 0 K/uL Sodium 137 (136-146) mmol/L Potassium 4.0 (3.5-5.1) mmol/L Chloride 104 (98-110) mmol/L Carbon Dioxide 22 (21-31) mmol/L BUN 27 H (6.0-23.0) mg/dL Creatinine 1.3 (0.6-1.5) mg/dL Est Cr Clr Drug Dosing 39.78 mL/min Estimated GFR (MDRD) 52.0 ml/min Glucose 84 (60-110) mg/dL Calcium 7.9 L (8.8-10.8) mg/dL Magnesium 1.8 (1.5-2.3) mEq/L Parth Results Last 24 Hours: Microbiology 04/13/17 09:46 Aerobic Blood Culture - Preliminary Blood - Venous - Lab Draw NO GROWTH AFTER 1 DAY Anaerobic Blood Culture - Final 04/13/17 09:34 Aerobic Blood Culture - Preliminary Blood - Venous NO GROWTH AFTER 1 DAY Anaerobic Blood Culture - Final Med Orders - Current: Current Medications Albuterol/Ipratropium (Duoneb 3.0-0.5 Mg/3 Ml) 3 ml NEB Q4HRRT [facility] Last Admin: 04/14/17 13:45 Dose: 3 ml Bisacodyl (Dulcolax) 10 mg RECTAL BID PRN PRN Reason: Constipation Last Admin: 04/13/17 18:38 Dose: 10 mg Enoxaparin Sodium (Lovenox) 40 mg SUBCUT Q24H [facility] Last Admin: 04/13/17 18:35 Dose: 40 mg Furosemide (Lasix) 40 mg IVPUSH Q12H [facility] Last Admin: 04/14/17 09:34 Dose: 40 mg Levofloxacin (Levaquin) 750 mg PO Q48H [facility] Last Admin: 04/13/17 10:30 Dose: 750 mg Sodium Chloride (Saline Flush) 10 ml FLUSH ASDIRECTED PRN PRN Reason: Keep Vein Open Sodium Chloride (Saline Flush) 2.5 ml FLUSH ASDIRECTED PRN PRN Reason: Keep Vein Open Discontinued Medications Albuterol/Ipratropium (Duoneb 3.0-0.5 Mg/3 Ml) 3 ml NEB ONETIME ONE Stop: 04/11/17 00:12 Last Admin: 04/11/17 00:17 Dose: 3 ml Digoxin (Lanoxin) 250 mcg IVPUSH ONETIME ONE Stop: 04/11/17 15:51 Last Admin: 04/11/17 15:59 Dose: 250 mcg Digoxin (Lanoxin) 250 mcg IVPUSH ONETIME ONE Stop: 04/12/17 09:15 Last Admin: 04/12/17 09:49 Dose: 250 mcg Furosemide (Lasix) 20 mg IVPUSH NOW ONE Stop: 04/11/17 02:25 Last Admin: 04/11/17 02:40 Dose: 20 mg Furosemide (Lasix) 40 mg PO ONETIME ONE Stop: 04/12/17 11:28 Last Admin: 04/12/17 11:54 Dose: 40 mg Furosemide (Lasix) 40 mg PO ONETIME ONE Stop: 04/13/17 08:00 Last Admin: 04/13/17 08:27 Dose: 40 mg Furosemide (Lasix) 40 mg PO ONETIME ONE Stop: 04/14/17 08:01 Last Admin: 04/14/17 10:00 Dose: Not Given Levofloxacin/Dextrose 750 mg/ (Premix) 150 mls @ 100 mls/hr IV ONETIME ONE Stop: 04/11/17 03:21 Last Admin: 04/11/17 02:15 Dose: 100 mls/hr Sodium Chloride (Normal Saline) 1,000 mls @ 125 mls/hr IV ASDIRECTED [facility] Last Admin: 04/11/17 04:16 Dose: 125 mls/hr Levofloxacin/Dextrose 750 mg/ (Premix) 150 mls @ 100 mls/hr IV Q48H [facility] Last Admin: 04/12/17 12:18 Dose: 100 mls/hr Piperacillin Sod/Tazobactam (Sod 4.5 gm/ Sodium Chloride) 100 mls @ 100 mls/hr IV Q6H [facility] Piperacillin Sod/Tazobactam (Sod 3.375 gm/ Sodium Chloride) 50 mls @ 50 mls/hr IV Q6H [facility] Last Admin: 04/13/17 02:59 Dose: 50 mls/hr Vancomycin HCl 1 gm/ Sodium (Chloride) 250 mls @ 166.667 mls/hr IV Q12H [facility] Last Admin: 04/12/17 21:10 Dose: 166.667 mls/hr Sodium Chloride (Normal Saline) 500 mls @ 500 mls/hr IV ONETIME ONE Stop: 04/11/17 15:29 Last Admin: 04/11/17 14:30 Dose: 500 mls/hr Magnesium Sulfate 4 gm/ Premix 100 mls @ 25 mls/hr IV ONETIME ONE Stop: 04/12/17 15:26 Last Admin: 04/12/17 11:54 Dose: 25 mls/hr Magnesium Sulfate 2 gm/ Premix 50 mls @ 50 mls/hr IV ONETIME ONE Stop: 04/13/17 08:53 Last Admin: 04/13/17 08:27 Dose: 50 mls/hr Ciprofloxacin/Dextrose 400 mg/ (Premix) 200 mls @ 200 mls/hr IV Q12H [facility] Last Admin: 04/13/17 09:30 Dose: Not Given Magnesium Sulfate 2 gm/ Premix 50 mls @ 25 mls/hr IV ONETIME ONE Stop: 04/14/17 09:58 Last Admin: 04/14/17 09:35 Dose: 25 mls/hr Lorazepam (Ativan) 1 mg IVPUSH ONETIME ONE Stop: 04/11/17 14:48 Last Admin: 04/11/17 15:50 Dose: Not Given Potassium Chloride (Klor-Con M20) 40 meq PO ONETIME ONE Stop: 04/12/17 11:59 Last Admin: 04/12/17 12:37 Dose: 40 meq Vancomycin HCl (Pharmacy To Dose - Vancomycin) 1 dose .XX ASDIRECTED [facility] - Exam Quality Assessment: Supplemental Oxygen General: Alert HEENT: Pupils Equal Neck: Supple Lungs: Clear to Auscultation Cardiovascular: Regular Rate, Regular Rhythm GI/Abdominal Exam: Normal Bowel Sounds, Soft Back Exam: Normal Inspection Extremities: No Pedal Edema, Normal Capillary Refill Skin: Warm Psy/Mental Status: Alert, Normal Affect - Problem List Review Problem List Initiated/Reviewed/Updated: Yes - Plan Plan:: Assessment: #1. Acute hypoxic respiratory failure secondary to CHF exacerbation with left pleural effusion noted on x-ray #2. blood cultures positive for Escherichia coli #3. Leukocytosis secondary to #2 that has resolved #4. hypotension, tachycardia that is showing improvement #5. A. Fibrillation Plan: #1. rrepeat blood cultures are negative thus far. Continue by mouth Levaquin #2. Follow-up on echocardiogram once available #3. Start IV Lasix 40 mg by mouth twice a day continue to monitor hemodynamic status.
[2017-04-14] MEDS: Enoxaparin 40 MG/0.4 ML Syringe SUBCUT SCH (20:00)
[2017-04-15] MEDS: Albuterol/Ipratropium 3.0-0.5 MG/3 ML Neb Soln NEB SCH ×5 (01:02→19:21)
[2017-04-15 06:22] LABS: CHLORIDE,CL 103 mmol/L (98-110); SODIUM,NA 140 mmol/L (136-146)
[2017-04-15] MEDS ORDERED: Potassium Chloride 20 MEQ Tab.ER PO ONE (08:37)
[2017-04-15] MEDS: Levofloxacin 250 MG Tab PO SCH (09:54)
[2017-04-15] MEDS: Furosemide 40 MG/4 ML VIAL IVPUSH SCH ×2 (10:00→21:05)
--- NOTE | 2017-04-15 11:37 | PCM.PN ---
- General Info Date of Service: 04/15/17 Subjective Update: No overnight events. No worsening altered mental status beyond baseline. Patient does not appear to be in any acute distress. Has been weaned down to 4 L oxygen via nasal cannula - Review of Systems General: Reports: Other (Unable to obtain secondary to dementia.) - Patient Data Vitals - Most Recent: Last Vital Signs Temp 36.4 C 04/15/17 08:00 Pulse 100 04/15/17 08:00 Resp 16 04/15/17 08:00 BP 124/72 04/15/17 08:00 Pulse Ox 95 04/15/17 08:00 Weight - Most Recent: 72.575 kg I&O - Last 24 Hours: Intake & Output 04/14/17 04/15/17 04/15/17 22:59 06:59 14:59 Intake Total 170 Output Total 755 Balance -585 Lab Results Last 24 Hours: Laboratory Results - last 24 hr 04/15/17 04/15/17 Range/Units 05:47 05:47 WBC 12.88 H (4.0-11.0) K/uL RBC 4.61 (4.50-5.90) M/uL Hgb 13.6 (13.0-17.0) g/dL Hct 41.7 (38.0-50.0) % MCV 90.5 (80.0-98.0) fL MCH 29.5 (27.0-32.0) pg MCHC 32.6 (31.0-37.0) g/dL RDW Std Deviation 46.2 (28.0-62.0) fl RDW Coeff of Eladio 14 (11.0-15.0) % Plt Count 323 (150-400) K/uL MPV 9.30 (7.40-12.00) fL Neut % (Auto) 76.5 (48.0-80.0) % Lymph % (Auto) 10.9 L (16.0-40.0) % [place] % (Auto) 11.8 (0.0-15.0) % Eos % (Auto) 0.6 (0.0-7.0) % Baso % (Auto) 0.2 (0.0-1.5) % Neut # (Auto) 9.9 H (1.4-5.7) K/uL Lymph # (Auto) 1.4 (0.6-2.4) K/uL [place] # (Auto) 1.5 H (0.0-0.8) K/uL Eos # (Auto) 0.1 (0.0-0.7) K/uL Baso # (Auto) 0.0 (0.0-0.1) K/uL Nucleated RBC % 0.0 /100WBC Nucleated RBCs # 0 K/uL Sodium 140 (136-146) mmol/L Potassium 3.0 L (3.5-5.1) mmol/L Chloride 103 (98-110) mmol/L Carbon Dioxide 25 (21-31) mmol/L BUN 25 H (6.0-23.0) mg/dL Creatinine 1.1 (0.6-1.5) mg/dL Est Cr Clr Drug Dosing 46.73 mL/min Estimated GFR (MDRD) > 60.0 ml/min Glucose 95 (60-110) mg/dL Calcium 8.3 L (8.8-10.8) mg/dL Parth Results Last 24 Hours: Microbiology 04/13/17 09:46 Aerobic Blood Culture - Preliminary Blood - Venous - Lab Draw NO GROWTH AFTER 2 DAYS Anaerobic Blood Culture - Final 04/13/17 09:34 Aerobic Blood Culture - Preliminary Blood - Venous NO GROWTH AFTER 2 DAYS Anaerobic Blood Culture - Final Med Orders - Current: Current Medications Albuterol/Ipratropium (Duoneb 3.0-0.5 Mg/3 Ml) 3 ml NEB Q4HRRT [facility] Last Admin: 04/15/17 10:24 Dose: Not Given Bisacodyl (Dulcolax) 10 mg RECTAL BID PRN PRN Reason: Constipation Last Admin: 04/13/17 18:38 Dose: 10 mg Enoxaparin Sodium (Lovenox) 40 mg SUBCUT Q24H [facility] Last Admin: 04/14/17 20:00 Dose: 40 mg Furosemide (Lasix) 40 mg IVPUSH Q12H [facility] Last Admin: 04/15/17 10:00 Dose: 40 mg Levofloxacin (Levaquin) 750 mg PO Q48H [facility] Last Admin: 04/15/17 09:54 Dose: 750 mg Levothyroxine Sodium (Synthroid) 100 mcg PO DAILY [facility] Sodium Chloride (Saline Flush) 10 ml FLUSH ASDIRECTED PRN PRN Reason: Keep Vein Open Sodium Chloride (Saline Flush) 2.5 ml FLUSH ASDIRECTED PRN PRN Reason: Keep Vein Open Discontinued Medications Albuterol/Ipratropium (Duoneb 3.0-0.5 Mg/3 Ml) 3 ml NEB ONETIME ONE Stop: 04/11/17 00:12 Last Admin: 04/11/17 00:17 Dose: 3 ml Digoxin (Lanoxin) 250 mcg IVPUSH ONETIME ONE Stop: 04/11/17 15:51 Last Admin: 04/11/17 15:59 Dose: 250 mcg Digoxin (Lanoxin) 250 mcg IVPUSH ONETIME ONE Stop: 04/12/17 09:15 Last Admin: 04/12/17 09:49 Dose: 250 mcg Furosemide (Lasix) 20 mg IVPUSH NOW ONE Stop: 04/11/17 02:25 Last Admin: 04/11/17 02:40 Dose: 20 mg Furosemide (Lasix) 40 mg PO ONETIME ONE Stop: 04/12/17 11:28 Last Admin: 04/12/17 11:54 Dose: 40 mg Furosemide (Lasix) 40 mg PO ONETIME ONE Stop: 04/13/17 08:00 Last Admin: 04/13/17 08:27 Dose: 40 mg Furosemide (Lasix) 40 mg PO ONETIME ONE Stop: 04/14/17 08:01 Last Admin: 04/14/17 10:00 Dose: Not Given Levofloxacin/Dextrose 750 mg/ (Premix) 150 mls @ 100 mls/hr IV ONETIME ONE Stop: 04/11/17 03:21 Last Admin: 04/11/17 02:15 Dose: 100 mls/hr Sodium Chloride (Normal Saline) 1,000 mls @ 125 mls/hr IV ASDIRECTED FORTUNATO Last Admin: 04/11/17 04:16 Dose: 125 mls/hr Levofloxacin/Dextrose 750 mg/ (Premix) 150 mls @ 100 mls/hr IV Q48H [facility] Last Admin: 04/12/17 12:18 Dose: 100 mls/hr Piperacillin Sod/Tazobactam (Sod 4.5 gm/ Sodium Chloride) 100 mls @ 100 mls/hr IV Q6H [facility] Piperacillin Sod/Tazobactam (Sod 3.375 gm/ Sodium Chloride) 50 mls @ 50 mls/hr IV Q6H [facility] Last Admin: 04/13/17 02:59 Dose: 50 mls/hr Vancomycin HCl 1 gm/ Sodium (Chloride) 250 mls @ 166.667 mls/hr IV Q12H [facility] Last Admin: 04/12/17 21:10 Dose: 166.667 mls/hr Sodium Chloride (Normal Saline) 500 mls @ 500 mls/hr IV ONETIME ONE Stop: 04/11/17 15:29 Last Admin: 04/11/17 14:30 Dose: 500 mls/hr Magnesium Sulfate 4 gm/ Premix 100 mls @ 25 mls/hr IV ONETIME ONE Stop: 04/12/17 15:26 Last Admin: 04/12/17 11:54 Dose: 25 mls/hr Magnesium Sulfate 2 gm/ Premix 50 mls @ 50 mls/hr IV ONETIME ONE Stop: 04/13/17 08:53 Last Admin: 04/13/17 08:27 Dose: 50 mls/hr Ciprofloxacin/Dextrose 400 mg/ (Premix) 200 mls @ 200 mls/hr IV Q12H [facility] Last Admin: 04/13/17 09:30 Dose: Not Given Magnesium Sulfate 2 gm/ Premix 50 mls @ 25 mls/hr IV ONETIME ONE Stop: 04/14/17 09:58 Last Admin: 04/14/17 09:35 Dose: 25 mls/hr Lorazepam (Ativan) 1 mg IVPUSH ONETIME ONE Stop: 04/11/17 14:48 Last Admin: 04/11/17 15:50 Dose: Not Given Potassium Chloride (Klor-Con M20) 40 meq PO ONETIME ONE Stop: 04/12/17 11:59 Last Admin: 04/12/17 12:37 Dose: 40 meq Potassium Chloride (Klor-Con M20) 40 meq PO ONETIME ONE Stop: 04/15/17 08:38 Last Admin: 04/15/17 09:50 Dose: 40 meq Vancomycin HCl (Pharmacy To Dose - Vancomycin) 1 dose .XX ASDIRECTED FORTUNATO - Exam Quality Assessment: Supplemental Oxygen General: Alert, Cooperative, No Acute Distress HEENT: Pupils Equal Neck: Supple Lungs: Clear to Auscultation, Normal Respiratory Effort Cardiovascular: Regular Rate, Regular Rhythm GI/Abdominal Exam: Normal Bowel Sounds Extremities: No Pedal Edema Skin: Warm Neurological: No New Focal Deficit Psy/Mental Status: Alert - Problem List Review Problem List Initiated/Reviewed/Updated: Yes - Plan Plan:: Assessment: #1. Acute hypoxic respiratory failure secondary to CHF exacerbation with left pleural effusion noted on x-ray #2. Leukocytosis #3. History of hypothyroidism Plan: #1. Chest x-ray, urinalysis. Will adjust antibiotic treatment if these come back for possible infection. Currently he is on IV levofloxacin. Titrate down oxygen as tolerated. #2. Continue diuresis as tolerated. #3. Restart home levothyroxine
--- NOTE | 2017-04-15 11:54 | CR ---
Portable chest Clinical history shortness of breath Comparison: prior chest x-ray Findings: There is persistence of cardiomegaly left pleural effusion and pulmonary parenchyma manifes tations of congestive heart failure. Impression: Persistent congestive heart failure
[2017-04-15] MEDS: Levothyroxine 100 MCG Tab PO SCH (12:15)
[2017-04-15] MEDS ORDERED: Acetaminophen 325 MG Tab PO PRN (12:32)
[2017-04-15] MEDS ORDERED: traMADol 50 MG Tab PO PRN (17:30)
[2017-04-15] MEDS: Enoxaparin 40 MG/0.4 ML Syringe SUBCUT SCH (21:04)
[2017-04-16] MEDS: Albuterol/Ipratropium 3.0-0.5 MG/3 ML Neb Soln NEB SCH ×7 (00:35→21:46)
[2017-04-16] MEDS ORDERED: Potassium Chloride 20 MEQ Tab.ER PO ONE (09:11)
[2017-04-16] MEDS ORDERED: Magnesium Sulfate/Water 4 GM in Premix Bag 1 BAG IV ONE (09:11)
[2017-04-16] MEDS: Furosemide 40 MG/4 ML VIAL IVPUSH SCH ×2 (09:55→21:11)
[2017-04-16] MEDS: Levothyroxine 100 MCG Tab PO SCH (09:57)
[2017-04-16] MEDS: Diltiazem 25 MG/5 ML SDV IVPUSH PRN (10:49)
[2017-04-16] MEDS ORDERED: cefTRIAXone 1 GM in Premix Bag 1 BAG IV SCH (11:15)
--- NOTE | 2017-04-16 12:15 | PCM.PN ---
- General Info Date of Service: 04/16/17 Subjective Update: Patient's oxygen requirement down to 2L. Appears to be clinically improving. Daughter in room when examined. Pt at baseline dementia. Awake, alert, not oriented to place or time. Denies any difficulty breathing, chest pain, palpitations. - Review of Systems General: Reports: Other (see HPI) - Patient Data Vitals - Most Recent: Last Vital Signs Temp 36.3 C 04/16/17 08:00 Pulse 108 H 04/16/17 08:00 Resp 18 04/16/17 10:21 BP 100/63 04/16/17 08:00 Pulse Ox 93 L 04/16/17 10:21 Weight - Most Recent: 72.575 kg I&O - Last 24 Hours: Intake & Output 04/15/17 04/16/17 04/16/17 22:59 06:59 14:59 Intake Total 1925 50 Output Total 50 Balance 1925 0 Lab Results Last 24 Hours: Laboratory Results - last 24 hr 04/15/17 04/16/17 04/16/17 Range/Units 11:50 06:05 06:05 WBC 13.72 H (4.0-11.0) K/uL RBC 4.54 (4.50-5.90) M/uL Hgb 13.5 (13.0-17.0) g/dL Hct 41.2 (38.0-50.0) % MCV 90.7 (80.0-98.0) fL MCH 29.7 (27.0-32.0) pg MCHC 32.8 (31.0-37.0) g/dL RDW Std Deviation 46.1 (28.0-62.0) fl RDW Coeff of Eladio 14 (11.0-15.0) % Plt Count 307 (150-400) K/uL MPV 9.20 (7.40-12.00) fL Neut % (Auto) 75.3 (48.0-80.0) % Lymph % (Auto) 12.3 L (16.0-40.0) % [place] % (Auto) 11.8 (0.0-15.0) % Eos % (Auto) 0.5 (0.0-7.0) % Baso % (Auto) 0.1 (0.0-1.5) % Neut # (Auto) 10.3 H (1.4-5.7) K/uL Lymph # (Auto) 1.7 (0.6-2.4) K/uL [place] # (Auto) 1.6 H (0.0-0.8) K/uL Eos # (Auto) 0.1 (0.0-0.7) K/uL Baso # (Auto) 0.0 (0.0-0.1) K/uL Nucleated RBC % 0.0 /100WBC Nucleated RBCs # 0 K/uL Sodium 140 (136-146) mmol/L Potassium 3.3 L (3.5-5.1) mmol/L Chloride 100 (98-110) mmol/L Carbon Dioxide 29 (21-31) mmol/L BUN 26 H (6.0-23.0) mg/dL Creatinine 1.2 (0.6-1.5) mg/dL Est Cr Clr Drug Dosing 42.84 mL/min Estimated GFR (MDRD) 57.0 ml/min Glucose 95 (60-110) mg/dL Calcium 8.2 L (8.8-10.8) mg/dL Magnesium 1.2 L (1.5-2.3) mEq/L Urine Color YELLOW Urine Appearance CLEAR Urine pH 6.0 (5.0-8.0) Ur Specific [place] 1.010 (1.001-1.035) Urine Protein NEGATIVE (NEGATIVE) mg/dL Urine Glucose (UA) NEGATIVE (NEGATIVE) mg/dL Urine Ketones NEGATIVE (NEGATIVE) mg/dL Urine Occult Blood TRACE-INTACT (NEGATIVE) Urine Nitrite NEGATIVE (NEGATIVE) Urine Bilirubin NEGATIVE (NEGATIVE) Urine Urobilinogen 0.2 (<2.0) EU/dL Ur Leukocyte Esterase TRACE (NEGATIVE) Urine RBC 0-1 (0-2/HPF) Urine WBC 0-1 (0-5/HPF) Ur Epithelial Cells RARE (NONE-FEW) Urine Bacteria RARE (NEGATIVE) Parth Results Last 24 Hours: Microbiology 04/13/17 09:46 Aerobic Blood Culture - Preliminary Blood - Venous - Lab Draw NO GROWTH AFTER 3 DAYS Anaerobic Blood Culture - Final 04/13/17 09:34 Aerobic Blood Culture - Preliminary Blood - Venous NO GROWTH AFTER 3 DAYS Anaerobic Blood Culture - Final Med Orders - Current: Current Medications Acetaminophen (Tylenol) 650 mg PO Q4H PRN PRN Reason: Pain Last Admin: 04/15/17 13:27 Dose: 650 mg Albuterol/Ipratropium (Duoneb 3.0-0.5 Mg/3 Ml) 3 ml NEB Q4HRRT [facility] Last Admin: 04/16/17 09:42 Dose: 3 ml Bisacodyl (Dulcolax) 10 mg RECTAL BID PRN PRN Reason: Constipation Last Admin: 04/13/17 18:38 Dose: 10 mg Diltiazem HCl (Diltiazem) 10 mg IVPUSH Q2HR PRN PRN Reason: Tachycardia Enoxaparin Sodium (Lovenox) 40 mg SUBCUT Q24H [facility] Last Admin: 04/15/17 21:04 Dose: 40 mg Furosemide (Lasix) 40 mg IVPUSH Q12H [facility] Last Admin: 04/16/17 09:55 Dose: 40 mg Magnesium Sulfate 4 gm/ Premix 100 mls @ 25 mls/hr IV ONETIME ONE Stop: 04/16/17 13:10 Last Admin: 04/16/17 09:55 Dose: 25 mls/hr Ceftriaxone Sodium/Dextrose 1 (gm/ Premix) 50 mls @ 100 mls/hr IV Q24H [facility] Levofloxacin (Levaquin) 750 mg PO Q48H [facility] Last Admin: 04/15/17 09:54 Dose: 750 mg Levothyroxine Sodium (Synthroid) 100 mcg PO DAILY [facility] Last Admin: 04/16/17 09:57 Dose: 100 mcg Sodium Chloride (Saline Flush) 10 ml FLUSH ASDIRECTED PRN PRN Reason: Keep Vein Open Sodium Chloride (Saline Flush) 2.5 ml FLUSH ASDIRECTED PRN PRN Reason: Keep Vein Open Tramadol HCl (Ultram) 50 mg PO Q8H PRN PRN Reason: Pain Discontinued Medications Albuterol/Ipratropium (Duoneb 3.0-0.5 Mg/3 Ml) 3 ml NEB ONETIME ONE Stop: 04/11/17 00:12 Last Admin: 04/11/17 00:17 Dose: 3 ml Digoxin (Lanoxin) 250 mcg IVPUSH ONETIME ONE Stop: 04/11/17 15:51 Last Admin: 04/11/17 15:59 Dose: 250 mcg Digoxin (Lanoxin) 250 mcg IVPUSH ONETIME ONE Stop: 04/12/17 09:15 Last Admin: 04/12/17 09:49 Dose: 250 mcg Furosemide (Lasix) 20 mg IVPUSH NOW ONE Stop: 04/11/17 02:25 Last Admin: 04/11/17 02:40 Dose: 20 mg Furosemide (Lasix) 40 mg PO ONETIME ONE Stop: 04/12/17 11:28 Last Admin: 04/12/17 11:54 Dose: 40 mg Furosemide (Lasix) 40 mg PO ONETIME ONE Stop: 04/13/17 08:00 Last Admin: 04/13/17 08:27 Dose: 40 mg Furosemide (Lasix) 40 mg PO ONETIME ONE Stop: 04/14/17 08:01 Last Admin: 04/14/17 10:00 Dose: Not Given Levofloxacin/Dextrose 750 mg/ (Premix) 150 mls @ 100 mls/hr IV ONETIME ONE Stop: 04/11/17 03:21 Last Admin: 04/11/17 02:15 Dose: 100 mls/hr Sodium Chloride (Normal Saline) 1,000 mls @ 125 mls/hr IV ASDIRECTED [facility] Last Admin: 04/11/17 04:16 Dose: 125 mls/hr Levofloxacin/Dextrose 750 mg/ (Premix) 150 mls @ 100 mls/hr IV Q48H [facility] Last Admin: 04/12/17 12:18 Dose: 100 mls/hr Piperacillin Sod/Tazobactam (Sod 4.5 gm/ Sodium Chloride) 100 mls @ 100 mls/hr IV Q6H [facility] Piperacillin Sod/Tazobactam (Sod 3.375 gm/ Sodium Chloride) 50 mls @ 50 mls/hr IV Q6H [facility] Last Admin: 04/13/17 02:59 Dose: 50 mls/hr Vancomycin HCl 1 gm/ Sodium (Chloride) 250 mls @ 166.667 mls/hr IV Q12H [facility] Last Admin: 04/12/17 21:10 Dose: 166.667 mls/hr Sodium Chloride (Normal Saline) 500 mls @ 500 mls/hr IV ONETIME ONE Stop: 04/11/17 15:29 Last Admin: 04/11/17 14:30 Dose: 500 mls/hr Magnesium Sulfate 4 gm/ Premix 100 mls @ 25 mls/hr IV ONETIME ONE Stop: 04/12/17 15:26 Last Admin: 04/12/17 11:54 Dose: 25 mls/hr Magnesium Sulfate 2 gm/ Premix 50 mls @ 50 mls/hr IV ONETIME ONE Stop: 04/13/17 08:53 Last Admin: 04/13/17 08:27 Dose: 50 mls/hr Ciprofloxacin/Dextrose 400 mg/ (Premix) 200 mls @ 200 mls/hr IV Q12H [facility] Last Admin: 04/13/17 09:30 Dose: Not Given Magnesium Sulfate 2 gm/ Premix 50 mls @ 25 mls/hr IV ONETIME ONE Stop: 04/14/17 09:58 Last Admin: 04/14/17 09:35 Dose: 25 mls/hr Lorazepam (Ativan) 1 mg IVPUSH ONETIME ONE Stop: 04/11/17 14:48 Last Admin: 04/11/17 15:50 Dose: Not Given Potassium Chloride (Klor-Con M20) 40 meq PO ONETIME ONE Stop: 04/12/17 11:59 Last Admin: 04/12/17 12:37 Dose: 40 meq Potassium Chloride (Klor-Con M20) 40 meq PO ONETIME ONE Stop: 04/15/17 08:38 Last Admin: 04/15/17 09:50 Dose: 40 meq Potassium Chloride (Klor-Con M20) 40 meq PO ONETIME ONE Stop: 04/16/17 09:12 Last Admin: 04/16/17 09:57 Dose: 40 meq Vancomycin HCl (Pharmacy To Dose - Vancomycin) 1 dose .XX ASDIRECTED FORTUNATO - Exam Quality Assessment: Supplemental Oxygen General: Alert, Oriented HEENT: Pupils Equal Neck: Supple Lungs: Clear to Auscultation, Normal Respiratory Effort Cardiovascular: Regular Rate, Regular Rhythm GI/Abdominal Exam: Normal Bowel Sounds, Soft, Non-Tender, No Organomegaly Extremities: Normal Range of Motion, No Pedal Edema, Normal Capillary Refill Psy/Mental Status: Alert, Normal Affect, Normal Mood - Problem List Review Problem List Initiated/Reviewed/Updated: Yes - My Orders Last 24 Hours: My Active Orders 04/15/17 12:32 Acetaminophen [Tylenol] 650 mg PO Q4H PRN 04/15/17 17:30 traMADol [Ultram] 50 mg PO Q8H PRN 04/16/17 09:11 Magnesium Sulfate/Water [Magnesium Sulfate 4 GM in Water 100 ML] 4 gm Premix Bag 1 bag IV ONETIME 04/16/17 11:15 cefTRIAXone [Rocephin in Dextrose,Iso-Osm 1 GM/50 ML] 1 gm Premix Bag 1 bag IV Q24H 04/16/17 Breakfast Regular Diet [DIET] - Plan Plan:: Assessment: #1. Acute hypoxic respiratory failure secondary to CHF exacerbation with left pleural effusion noted on x-ray #2. Leukocytosis Plan: #1. I's and O's dont appear to be accurate secondary to no huang and clinical improvement. #2. Continue Lasix #3. continue to wean off oxygen. #4. Start IV Rocephin 1000mg q24h for persistent leukocytosis #5. Dispo 2-3 days.
[2017-04-16] MEDS ORDERED: Sodium Chloride 0.9% 500 ML IV SCH (13:00)
[2017-04-16] MEDS: cefTRIAXone 1 GM in Premix Bag 1 BAG IV SCH (14:55)
[2017-04-16] MEDS: Enoxaparin 40 MG/0.4 ML Syringe SUBCUT SCH (18:01)
[2017-04-17] MEDS: Albuterol/Ipratropium 3.0-0.5 MG/3 ML Neb Soln NEB SCH ×6 (02:40→21:23)
[2017-04-17] MEDS: Furosemide 40 MG/4 ML VIAL IVPUSH SCH (09:27)
[2017-04-17] MEDS: Levothyroxine 100 MCG Tab PO SCH (09:27)
[2017-04-17] MEDS: Levofloxacin 250 MG Tab PO SCH (09:27)
[2017-04-17] MEDS ORDERED: Potassium Chloride 20 MEQ Tab.ER PO ONE (09:56)
[2017-04-17] MEDS ORDERED: Magnesium Sulfate/Water 2 GM in Premix Bag 1 BAG IV ONE (09:56)
--- NOTE | 2017-04-17 10:54 | PCM.HP ---
H&P History of Present Illness - History of Present Illness Initial Comments - Free Text/Narative: no new complaints. Right Leg Pain Score (Numeric/FACES): 0 - Related Data Allergies/Adverse Reactions: Allergies Allergy/AdvReac Type Severity Reaction Status Date / Time No Known Allergies Allergy Verified 06/26/13 09:08 Home Medications: Home Meds Acetaminophen 650 mg PO DAILY 04/11/17 [History] Acetaminophen [Tylenol] 650 mg PO Q4H PRN 04/11/17 [History] Bisacodyl 0 mg RC 04/11/17 [History] Glucosamine Sulfate 500 mg PO BID 04/11/17 [History] Levothyroxine Sodium [Synthroid] 100 mcg PO DAILY 04/11/17 [History] Loperamide HCl [Imodium A-D] 2 mg PO ASDIRECTED 04/11/17 [History] Losartan/Hydrochlorothiazide [Losartan-HCTZ 100-25 MG] 1 each PO DAILY 04/11/17 [History] Lutein/Min/Vit C/Vit E Acetate [Ocuvite Lutein] 1 cap PO DAILY 04/11/17 [History ] Magnesium Hydroxide [Milk of Magnesia] 30 ml PO DAILY PRN 04/11/17 [History] Potassium Chloride [place] Er 04/11/17 [History] amLODIPine Besylate [Amlodipine Besylate] 5 mg PO DAILY 04/11/17 [History] Past Medical History HEENT History: Reports: Hard of Hearing, Impaired Vision, Other (See Below) Other HEENT History: Conjunctivitis. Macular Degenaration. on Hearing Aid Cardiovascular History: Reports: Hypertension Respiratory History: Reports: None Gastrointestinal History: Reports: None Genitourinary History: Reports: None Musculoskeletal History: Reports: Osteoarthritis, Other (See Below) Other Musculoskeletal History: gait & mobility abnormalities Neurological History: Reports: Other (See Below) Other Neuro History: Dementia Psychiatric History: Reports: Dementia Endocrine/Metabolic History: Reports: Hypothyroidism Hematologic History: Reports: None Immunologic History: Reports: None Oncologic (Cancer) History: Reports: None Dermatologic History: Reports: None - Infectious Disease History Infectious Disease History: Reports: Other (See Below) Other Infectious Disease History: July't remember Social & Family History - Family History Family Medical History: Noncontributory - Tobacco Use Smoking Status *Q: Unknown Ever Smoked Tobacco Use Comment: Patient has dementia. Second Hand Smoke Exposure: No - Recreational Drug Use Recreational Drug Use: No H&P Review of Systems - Review of Systems: Review Of Systems: ROS reveals no pertinent complaints other than HPI. Exam - Exam Exam: See Below - Vital Signs Vital Signs: Last Vital Signs Temp 36.2 C 04/17/17 08:00 Pulse 100 04/17/17 08:00 Resp 20 04/17/17 08:00 BP 112/71 04/17/17 08:00 Pulse Ox 95 04/17/17 08:00 Weight: 69.899 kg - Exam General: Cooperative. No: Mild Distress HEENT: Mucosa Moist & [place] Neck: Supple Lungs: Clear to Auscultation, Normal Respiratory Effort Cardiovascular: Regular Rate, Regular Rhythm GI/Abdominal Exam: Soft, Non-Tender, No Distention Extremities: Non-Tender, No Pedal Edema Skin: Warm, Dry, Intact - Patient Data Lab Results Last 24 hrs: Laboratory Results - last 24 hr 04/17/17 04/17/17 04/17/17 Range/Units 05:45 05:45 05:45 WBC 13.30 H (4.0-11.0) K/uL RBC 4.39 L (4.50-5.90) M/uL Hgb 13.0 (13.0-17.0) g/dL Hct 39.6 (38.0-50.0) % MCV 90.2 (80.0-98.0) fL MCH 29.6 (27.0-32.0) pg MCHC 32.8 (31.0-37.0) g/dL RDW Std Deviation 46.2 (28.0-62.0) fl RDW Coeff of Eladio 14 (11.0-15.0) % Plt Count 323 (150-400) K/uL MPV 9.10 (7.40-12.00) fL Neut % (Auto) 72.2 (48.0-80.0) % Lymph % (Auto) 14.6 L (16.0-40.0) % [place] % (Auto) 12.0 (0.0-15.0) % Eos % (Auto) 1.0 (0.0-7.0) % Baso % (Auto) 0.2 (0.0-1.5) % Neut # (Auto) 9.6 H (1.4-5.7) K/uL Lymph # (Auto) 1.9 (0.6-2.4) K/uL [place] # (Auto) 1.6 H (0.0-0.8) K/uL Eos # (Auto) 0.1 (0.0-0.7) K/uL Baso # (Auto) 0.0 (0.0-0.1) K/uL Nucleated RBC % 0.0 /100WBC Nucleated RBCs # 0 K/uL Sodium 139 (136-146) mmol/L Potassium 3.3 L (3.5-5.1) mmol/L Chloride 100 (98-110) mmol/L Carbon Dioxide 29 (21-31) mmol/L BUN 30 H (6.0-23.0) mg/dL Creatinine 1.2 (0.6-1.5) mg/dL Est Cr Clr Drug Dosing 41.26 mL/min Estimated GFR (MDRD) 57.0 ml/min Glucose 101 (60-110) mg/dL Calcium 8.1 L (8.8-10.8) mg/dL Magnesium 1.7 (1.5-2.3) mEq/L Total Bilirubin 0.5 (0.1-1.5) mg/dL AST 28 (5-40) IU/L ALT 23 (8-54) IU/L Alkaline Phosphatase 84 (40-150) Total Protein 6.2 (6.0-8.0) g/dL Albumin 2.7 L (3.4-4.8) g/dL Globulin 3.5 (2.0-3.5) g/dL Albumin/Globulin Ratio 0.8 L (1.3-2.8) Result Diagrams: 04/17/17 05:45 04/17/17 05:45 Parth Results Last 24 hrs: Microbiology 04/13/17 09:46 Aerobic Blood Culture - Preliminary Blood - Venous - Lab Draw NO GROWTH AFTER 4 DAYS Anaerobic Blood Culture - Final 04/13/17 09:34 Aerobic Blood Culture - Preliminary Blood - Venous NO GROWTH AFTER 4 DAYS Anaerobic Blood Culture - Final *Q Meaningful Use (ADM) - VTE *Q VTE Criteria *Q: - Stroke *Q Stroke Criteria *Q: - AMI *Q AMI Criteria *Q: Problem List Initiated/Reviewed/Updated: Yes Orders Last 24hrs: Active Orders 24 hr Category Date Time Status Communication Order [RC] PER UNIT ROUTINE Care 04/16/17 19:56 Active Communication Order [RC] PER UNIT ROUTINE Care 04/16/17 20:04 Active MAGNESIUM [CHEM] AM Lab 04/18/17 05:11 Ordered MAGNESIUM [CHEM] AM Lab 04/19/17 05:11 Ordered Magnesium Sulfate/Water [Magnesium Sulfate 2 GM in Med 04/17/17 09:56 Active Water 50 ML] 2 gm Premix Bag 1 bag IV ONETIME Sodium Chloride 0.9% [Normal Saline] 500 ml Med 04/16/17 13:00 Active IV .BOLUS cefTRIAXone [Rocephin in Dextrose,Iso-Osm 1 GM/50 ML] 1 Med 04/16/17 15:00 Active gm Premix Bag 1 bag IV Q24H Medication Orders Acetaminophen (Tylenol) 650 mg PO Q4H PRN PRN Reason: Pain Last Admin: 04/15/17 13:27 Dose: 650 mg Albuterol/Ipratropium (Duoneb 3.0-0.5 Mg/3 Ml) 3 ml NEB Q4HRRT [facility] Last Admin: 04/17/17 09:57 Dose: 3 ml Admin: 04/17/17 06:00 Dose: 3 ml Admin: 04/17/17 02:40 Dose: 3 ml Admin: 04/16/17 21:46 Dose: 3 ml Admin: 04/16/17 18:28 Dose: 3 ml Admin: 04/16/17 13:37 Dose: 3 ml Admin: 04/16/17 09:42 Dose: 3 ml Admin: 04/16/17 06:08 Dose: 3 ml Admin: 04/16/17 01:47 Dose: 3 ml Admin: 04/16/17 00:35 Dose: Not Given Admin: 04/15/17 19:21 Dose: 3 ml Admin: 04/15/17 15:32 Dose: 3 ml Admin: 04/15/17 10:24 Dose: Not Given Admin: 04/15/17 06:15 Dose: 3 ml Admin: 04/15/17 01:02 Dose: 3 ml Admin: 04/14/17 21:35 Dose: 3 ml Admin: 04/14/17 18:53 Dose: Not Given Admin: 04/14/17 13:45 Dose: 3 ml Admin: 04/14/17 10:22 Dose: 3 ml Admin: 04/14/17 06:17 Dose: 3 ml Admin: 04/14/17 04:15 Dose: Not Given Admin: 04/13/17 23:26 Dose: 3 ml Admin: 04/13/17 19:07 Dose: Not Given Admin: 04/13/17 15:33 Dose: 3 ml Admin: 04/13/17 09:57 Dose: Not Given Admin: 04/13/17 06:17 Dose: 3 ml Admin: 04/13/17 02:58 Dose: 3 ml Admin: 04/12/17 21:26 Dose: 3 ml Admin: 04/12/17 19:58 Dose: Not Given Admin: 04/12/17 13:17 Dose: 3 ml Admin: 04/12/17 10:04 Dose: 3 ml Admin: 04/12/17 06:18 Dose: 3 ml Admin: 04/12/17 01:55 Dose: 3 ml Admin: 04/11/17 23:07 Dose: 3 ml Admin: 04/11/17 18:42 Dose: 3 ml Admin: 04/11/17 15:00 Dose: 3 ml Admin: 04/11/17 10:24 Dose: 3 ml Admin: 04/11/17 08:45 Dose: 3 ml Bisacodyl (Dulcolax) 10 mg RECTAL BID PRN PRN Reason: Constipation Last Admin: 04/13/17 18:38 Dose: 10 mg Diltiazem HCl (Diltiazem) 10 mg IVPUSH Q2HR PRN PRN Reason: Tachycardia Enoxaparin Sodium (Lovenox) 40 mg SUBCUT Q24H [facility] [place] Last Admin: 04/16/17 18:01 Dose: 40 mg Admin: 04/15/17 21:04 Dose: 40 mg Admin: 04/14/17 20:00 Dose: 40 mg Admin: 04/13/17 18:35 Dose: 40 mg Admin: 04/12/17 18:21 Dose: 40 mg Admin: 04/11/17 19:25 Dose: 40 mg Sodium Chloride (Normal Saline) 500 mls @ 999 mls/hr IV .BOLUS [facility] [place] Last Admin: 04/16/17 13:34 Dose: 999 mls/hr Ceftriaxone Sodium/Dextrose 1 (gm/ Premix) 50 mls @ 100 mls/hr IV Q24H [facility] [place] Last Admin: 04/16/17 14:55 Dose: 100 mls/hr Magnesium Sulfate 2 gm/ Premix 50 mls @ 50 mls/hr IV ONETIME ONE Stop: 04/17/17 10:55 Last Admin: 04/17/17 10:33 Dose: 50 mls/hr Levofloxacin (Levaquin) 750 mg PO Q48H [facility] [place] Last Admin: 04/17/17 09:27 Dose: 750 mg Admin: 04/15/17 09:54 Dose: 750 mg Admin: 04/13/17 10:30 Dose: 750 mg Levothyroxine Sodium (Synthroid) 100 mcg PO DAILY [facility] [place] Last Admin: 04/17/17 09:27 Dose: 100 mcg Admin: 04/16/17 09:57 Dose: 100 mcg Admin: 04/15/17 12:15 Dose: 100 mcg Sodium Chloride (Saline Flush) 10 ml FLUSH ASDIRECTED PRN PRN Reason: Keep Vein Open Sodium Chloride (Saline Flush) 2.5 ml FLUSH ASDIRECTED PRN PRN Reason: Keep Vein Open Tramadol HCl (Ultram) 50 mg PO Q8H PRN PRN Reason: Pain Assessment/Plan Comment:: 89 yo male admitted with acute hypoxic respiratory failure secondary to CHF exacerbation and Ecoli bacteremia CHF: preserved EF on echocardiogram, holding lasix due to hypotension and rising BUN Ecoli bacteremia: on levaquin Persistent leukocytosis: Rocephin added yesterday
[2017-04-17] MEDS: cefTRIAXone 1 GM in Premix Bag 1 BAG IV SCH (15:47)
[2017-04-17] MEDS: Enoxaparin 40 MG/0.4 ML Syringe SUBCUT SCH (18:39)
[2017-04-18] MEDS: Albuterol/Ipratropium 3.0-0.5 MG/3 ML Neb Soln NEB SCH ×3 (02:22→10:08)
[2017-04-18 06:37] LABS: CHLORIDE,CL 102 mmol/L (98-110); SODIUM,NA 137 mmol/L (136-146)
[2017-04-18] MEDS ORDERED: Potassium Chloride 20 MEQ Tab.ER PO ONE (08:16)
[2017-04-18] MEDS ORDERED: Magnesium Sulfate/Water 2 GM in Premix Bag 1 BAG IV ONE (08:17)
[2017-04-18] MEDS: Levothyroxine 100 MCG Tab PO SCH (08:53)
[2017-04-18] MEDS: Diltiazem 25 MG/5 ML SDV IVPUSH PRN (09:19)
[2017-04-18] MEDS: Bisacodyl 10 MG Supp RECTAL PRN (13:06)
--- NOTE | 2017-04-18 13:54 | PCM.DCSUM1 ---
<Martin Boswell - Last Filed: 04/18/17 13:49> Discharge Summary - Hospital Course Free Text/Narrative:: Admission date: April 11, 2017 Discharge date: April 18, 2017 Admission diagnosis: #1. Acute hypoxic respiratory failure secondary to pneumonia, CHF #2. Urinary tract infection #3. Leukocytosis secondary to 1 and 2 #4. Elevated d-dimer #5. Elevated BNP #6. Hypotension #7. Atrial fibrillation #8. Dementia Discharge diagnosis: #1. Hypoxia requiring 2.5 L oxygen via nasal cannula #2. Improving leukocytosis secondary to UTI, pneumonia #3. CHF #4. History of dementia Hospital course: 89-year-old [facility] resident admitted to the ICU for the above-mentioned reason on April 11, 2017. Patient was placed on vancomycin, levofloxacin, Zosyn to cover for his pneumonia and UTI. Initially, patient presented with hypotension resulting in treatment for the patient's infection first. After this was clinically improved, he was diuresed with Lasix. Echocardiogram indicated a congestive heart failure with preserved ejection fraction. Patient was then de-escalated, antibiotics to levofloxacin. However, the patient had a rebound in his leukocytosis so Rocephin was then started. He seemed to have responded well to this. Oxygen was titrated from BiPAP down to 2.5 L over the hospital stay. He was discharged home on 40 mg of Lasix daily, along with Keflex for his ongoing infections. He may be able to be titrated off the oxygen in the upcoming days. He is to follow a fluid restriction until clinical signs of fluid overload and hypoxia has resolved. Amlodipine was discontinued. Carvedilol was started. - Discharge Data Discharge Date: 04/18/17 Discharge Disposition: DC/Tfer to [facility] Condition: Fair - Patient Summary/Data Consults: Consultations 04/13/17 14:52 Consult to Physical Therapy [PT Evaluation and Treatment] [CONS] Routine - Patient Instructions Diet: Heart Healthy Diet, Fluid Restriction Activity: As Tolerated Notify Provider of: Fever, Increased Pain, Swelling and Redness, Nausea and/or Vomiting Other/Special Instructions: sob/chest pain - Discharge Plan Prescriptions/Med Rec: Carvedilol [Coreg] 12.5 mg PO DAILY 7 Days #7 tablet Cephalexin [Keflex] 500 mg PO Q12H 4 Days #8 capsule Furosemide [Lasix] 40 mg PO DAILY 7 Days #7 tab Home Medications: Home Meds Acetaminophen 650 mg PO DAILY 04/11/17 [History] Acetaminophen [Tylenol] 650 mg PO Q4H PRN 04/11/17 [History] Bisacodyl 0 mg RC 04/11/17 [History] Glucosamine Sulfate 500 mg PO BID 04/11/17 [History] Levothyroxine Sodium [Synthroid] 100 mcg PO DAILY 04/11/17 [History] Loperamide HCl [Imodium A-D] 2 mg PO ASDIRECTED 04/11/17 [History] Losartan/Hydrochlorothiazide [Losartan-HCTZ 100-25 MG] 1 each PO DAILY 04/11/17 [History] Lutein/Min/Vit C/Vit E Acetate [Ocuvite Lutein] 1 cap PO DAILY 04/11/17 [History ] Magnesium Hydroxide [Milk of Magnesia] 30 ml PO DAILY PRN 04/11/17 [History] Potassium Chloride [place] Er 04/11/17 [History] Carvedilol [Coreg] 12.5 mg PO DAILY 7 Days #7 tablet 04/18/17 [Rx] Cephalexin [Keflex] 500 mg PO Q12H 4 Days #8 capsule 04/18/17 [Rx] Furosemide [Lasix] 40 mg PO DAILY 7 Days #7 tab 04/18/17 [Rx] Patient Handouts: Furosemide tablets, Hypoxemia, Carvedilol tablets, Cephalexin tablets or capsules, Community-Acquired Pneumonia, Adult, Easy-to- Read Referrals: Jayesh Kimbrough MD [Physician] - 04/21/17 (On his next [facility] rounds.) - Patient Data Vitals - Most Recent: Last Vital Signs Temp 36.0 C 04/18/17 11:44 Pulse 88 04/18/17 11:44 Resp 20 04/18/17 11:44 BP 112/72 04/18/17 11:44 Pulse Ox 91 L 04/18/17 11:44 Weight - Most Recent: 69.899 kg I&O - Last 24 hours: Intake & Output 04/17/17 04/18/17 04/18/17 22:59 06:59 14:59 Intake Total 650 300 50 Balance 650 300 50 Lab Results - Last 24 hrs: Laboratory Results - last 24 hr 04/18/17 04/18/17 04/18/17 Range/Units 06:03 06:03 06:03 WBC 12.00 H (4.0-11.0) K/uL RBC 4.18 L (4.50-5.90) M/uL Hgb 12.4 L (13.0-17.0) g/dL Hct 37.6 L (38.0-50.0) % MCV 90.0 (80.0-98.0) fL MCH 29.7 (27.0-32.0) pg MCHC 33.0 (31.0-37.0) g/dL RDW Std Deviation 46.5 (28.0-62.0) fl RDW Coeff of Eladio 14 (11.0-15.0) % Plt Count 326 (150-400) K/uL MPV 9.10 (7.40-12.00) fL Neut % (Auto) 72.3 (48.0-80.0) % Lymph % (Auto) 14.7 L (16.0-40.0) % [place] % (Auto) 12.2 (0.0-15.0) % Eos % (Auto) 0.6 (0.0-7.0) % Baso % (Auto) 0.2 (0.0-1.5) % Neut # (Auto) 8.7 H (1.4-5.7) K/uL Lymph # (Auto) 1.8 (0.6-2.4) K/uL [place] # (Auto) 1.5 H (0.0-0.8) K/uL Eos # (Auto) 0.1 (0.0-0.7) K/uL Baso # (Auto) 0.0 (0.0-0.1) K/uL Nucleated RBC % 0.0 /100WBC Nucleated RBCs # 0 K/uL Sodium 137 (136-146) mmol/L Potassium 3.3 L (3.5-5.1) mmol/L Chloride 102 (98-110) mmol/L Carbon Dioxide 26 (21-31) mmol/L BUN 25 H (6.0-23.0) mg/dL Creatinine 1.0 (0.6-1.5) mg/dL Est Cr Clr Drug Dosing 49.51 mL/min Estimated GFR (MDRD) > 60.0 ml/min Glucose 94 (60-110) mg/dL Calcium 7.8 L (8.8-10.8) mg/dL Magnesium 1.7 (1.5-2.3) mEq/L [place] Results - Last 24 hrs: Microbiology 04/13/17 09:46 Aerobic Blood Culture - Final Blood - Venous - Lab Draw NO GROWTH AFTER 5 DAYS Anaerobic Blood Culture - Final 04/13/17 09:34 Aerobic Blood Culture - Final Blood - Venous NO GROWTH AFTER 5 DAYS Anaerobic Blood Culture - Final Med Orders - Current: Current Medications Acetaminophen (Tylenol) 650 mg PO Q4H PRN PRN Reason: Pain Last Admin: 04/15/17 13:27 Dose: 650 mg Albuterol/Ipratropium (Duoneb 3.0-0.5 Mg/3 Ml) 3 ml NEB Q4HRRT [facility] Last Admin: 04/18/17 10:08 Dose: Not Given Bisacodyl (Dulcolax) 10 mg RECTAL BID PRN PRN Reason: Constipation Last Admin: 04/18/17 13:06 Dose: 10 mg Diltiazem HCl (Diltiazem) 10 mg IVPUSH Q2HR PRN PRN Reason: Tachycardia Last Admin: 04/18/17 09:19 Dose: 10 mg Enoxaparin Sodium (Lovenox) 40 mg SUBCUT Q24H [facility] Last Admin: 04/17/17 18:39 Dose: 40 mg Sodium Chloride (Normal Saline) 500 mls @ 999 mls/hr IV .BOLUS [facility] Last Admin: 04/16/17 13:34 Dose: 999 mls/hr Ceftriaxone Sodium/Dextrose 1 (gm/ Premix) 50 mls @ 100 mls/hr IV Q24H [facility] Last Admin: 04/17/17 15:47 Dose: 100 mls/hr Levofloxacin (Levaquin) 750 mg PO Q48H [facility] Last Admin: 04/17/17 09:27 Dose: 750 mg Levothyroxine Sodium (Synthroid) 100 mcg PO DAILY [facility] Last Admin: 04/18/17 08:53 Dose: 100 mcg Sodium Chloride (Saline Flush) 10 ml FLUSH ASDIRECTED PRN PRN Reason: Keep Vein Open Sodium Chloride (Saline Flush) 2.5 ml FLUSH ASDIRECTED PRN PRN Reason: Keep Vein Open Tramadol HCl (Ultram) 50 mg PO Q8H PRN PRN Reason: Pain Discontinued Medications Albuterol/Ipratropium (Duoneb 3.0-0.5 Mg/3 Ml) 3 ml NEB ONETIME ONE Stop: 04/11/17 00:12 Last Admin: 04/11/17 00:17 Dose: 3 ml Digoxin (Lanoxin) 250 mcg IVPUSH ONETIME ONE Stop: 04/11/17 15:51 Last Admin: 04/11/17 15:59 Dose: 250 mcg Digoxin (Lanoxin) 250 mcg IVPUSH ONETIME ONE Stop: 04/12/17 09:15 Last Admin: 04/12/17 09:49 Dose: 250 mcg Furosemide (Lasix) 20 mg IVPUSH NOW ONE Stop: 04/11/17 02:25 Last Admin: 04/11/17 02:40 Dose: 20 mg Furosemide (Lasix) 40 mg PO ONETIME ONE Stop: 04/12/17 11:28 Last Admin: 04/12/17 11:54 Dose: 40 mg Furosemide (Lasix) 40 mg PO ONETIME ONE Stop: 04/13/17 08:00 Last Admin: 04/13/17 08:27 Dose: 40 mg Furosemide (Lasix) 40 mg PO ONETIME ONE Stop: 04/14/17 08:01 Last Admin: 04/14/17 10:00 Dose: Not Given Furosemide (Lasix) 40 mg IVPUSH Q12H [facility] Last Admin: 04/17/17 09:27 Dose: 40 mg Levofloxacin/Dextrose 750 mg/ (Premix) 150 mls @ 100 mls/hr IV ONETIME ONE Stop: 04/11/17 03:21 Last Admin: 04/11/17 02:15 Dose: 100 mls/hr Sodium Chloride (Normal Saline) 1,000 mls @ 125 mls/hr IV ASDIRECTED [facility] Last Admin: 04/11/17 04:16 Dose: 125 mls/hr Levofloxacin/Dextrose 750 mg/ (Premix) 150 mls @ 100 mls/hr IV Q48H [facility] Last Admin: 04/12/17 12:18 Dose: 100 mls/hr Piperacillin Sod/Tazobactam (Sod 4.5 gm/ Sodium Chloride) 100 mls @ 100 mls/hr IV Q6H [facility] Piperacillin Sod/Tazobactam (Sod 3.375 gm/ Sodium Chloride) 50 mls @ 50 mls/hr IV Q6H [facility] Last Admin: 04/13/17 02:59 Dose: 50 mls/hr Vancomycin HCl 1 gm/ Sodium (Chloride) 250 mls @ 166.667 mls/hr IV Q12H [facility] Last Admin: 04/12/17 21:10 Dose: 166.667 mls/hr Sodium Chloride (Normal Saline) 500 mls @ 500 mls/hr IV ONETIME ONE Stop: 04/11/17 15:29 Last Admin: 04/11/17 14:30 Dose: 500 mls/hr Magnesium Sulfate 4 gm/ Premix 100 mls @ 25 mls/hr IV ONETIME ONE Stop: 04/12/17 15:26 Last Admin: 04/12/17 11:54 Dose: 25 mls/hr Magnesium Sulfate 2 gm/ Premix 50 mls @ 50 mls/hr IV ONETIME ONE Stop: 04/13/17 08:53 Last Admin: 04/13/17 08:27 Dose: 50 mls/hr Ciprofloxacin/Dextrose 400 mg/ (Premix) 200 mls @ 200 mls/hr IV Q12H [facility] Last Admin: 04/13/17 09:30 Dose: Not Given Magnesium Sulfate 2 gm/ Premix 50 mls @ 25 mls/hr IV ONETIME ONE Stop: 04/14/17 09:58 Last Admin: 04/14/17 09:35 Dose: 25 mls/hr Magnesium Sulfate 4 gm/ Premix 100 mls @ 25 mls/hr IV ONETIME ONE Stop: 04/16/17 13:10 Last Admin: 04/16/17 09:55 Dose: 25 mls/hr Ceftriaxone Sodium/Dextrose 1 (gm/ Premix) 50 mls @ 100 mls/hr IV Q24H [facility] Last Admin: 04/16/17 14:07 Dose: Not Given Magnesium Sulfate 2 gm/ Premix 50 mls @ 50 mls/hr IV ONETIME ONE Stop: 04/17/17 10:55 Last Admin: 04/17/17 10:33 Dose: 50 mls/hr Magnesium Sulfate 2 gm/ Premix 50 mls @ 25 mls/hr IV ONETIME ONE Stop: 04/18/17 10:16 Last Admin: 04/18/17 08:53 Dose: 25 mls/hr Lorazepam (Ativan) 1 mg IVPUSH ONETIME ONE Stop: 04/11/17 14:48 Last Admin: 04/11/17 15:50 Dose: Not Given Potassium Chloride (Klor-Con M20) 40 meq PO ONETIME ONE Stop: 04/12/17 11:59 Last Admin: 04/12/17 12:37 Dose: 40 meq Potassium Chloride (Klor-Con M20) 40 meq PO ONETIME ONE Stop: 04/15/17 08:38 Last Admin: 04/15/17 09:50 Dose: 40 meq Potassium Chloride (Klor-Con M20) 40 meq PO ONETIME ONE Stop: 04/16/17 09:12 Last Admin: 04/16/17 09:57 Dose: 40 meq Potassium Chloride (Klor-Con M20) 40 meq PO ONETIME ONE Stop: 04/17/17 09:57 Last Admin: 04/17/17 10:33 Dose: 40 meq Potassium Chloride (Klor-Con M20) 40 meq PO ONETIME ONE Stop: 04/18/17 08:17 Last Admin: 04/18/17 08:53 Dose: 40 meq Vancomycin HCl (Pharmacy To Dose - Vancomycin) 1 dose .XX ASDIRECTED FORTUNATO *Q Meaningful Use (DIS) - VTE *Q VTE Criteria *Q: - Stroke *Q Stroke Criteria *Q: - AMI *Q AMI Criteria *Q: <Ruiz Ceron - Last Filed: 04/19/17 17:57> Discharge Summary - Patient Summary/Data Consults: Consultations 04/13/17 14:52 Consult to Physical Therapy [PT Evaluation and Treatment] [CONS] Routine - Patient Data Vitals - Most Recent: Last Vital Signs Temp 36.0 C 04/18/17 11:44 Pulse 88 04/18/17 11:44 Resp 20 04/18/17 11:44 BP 112/72 04/18/17 11:44 Pulse Ox 91 L 04/18/17 11:44 Med Orders - Current: Current Medications Discontinued Medications Acetaminophen (Tylenol) 650 mg PO Q4H PRN PRN Reason: Pain Last Admin: 04/15/17 13:27 Dose: 650 mg Albuterol/Ipratropium (Duoneb 3.0-0.5 Mg/3 Ml) 3 ml NEB ONETIME ONE Stop: 04/11/17 00:12 Last Admin: 04/11/17 00:17 Dose: 3 ml Albuterol/Ipratropium (Duoneb 3.0-0.5 Mg/3 Ml) 3 ml NEB Q4HRRT [facility] Last Admin: 04/18/17 10:08 Dose: Not Given Bisacodyl (Dulcolax) 10 mg RECTAL BID PRN PRN Reason: Constipation Last Admin: 04/18/17 13:06 Dose: 10 mg Digoxin (Lanoxin) 250 mcg IVPUSH ONETIME ONE Stop: 04/11/17 15:51 Last Admin: 04/11/17 15:59 Dose: 250 mcg Digoxin (Lanoxin) 250 mcg IVPUSH ONETIME ONE Stop: 04/12/17 09:15 Last Admin: 04/12/17 09:49 Dose: 250 mcg Diltiazem HCl (Diltiazem) 10 mg IVPUSH Q2HR PRN PRN Reason: Tachycardia Last Admin: 04/18/17 09:19 Dose: 10 mg Enoxaparin Sodium (Lovenox) 40 mg SUBCUT Q24H [facility] Last Admin: 04/17/17 18:39 Dose: 40 mg Furosemide (Lasix) 20 mg IVPUSH NOW ONE Stop: 04/11/17 02:25 Last Admin: 04/11/17 02:40 Dose: 20 mg Furosemide (Lasix) 40 mg PO ONETIME ONE Stop: 04/12/17 11:28 Last Admin: 04/12/17 11:54 Dose: 40 mg Furosemide (Lasix) 40 mg PO ONETIME ONE Stop: 04/13/17 08:00 Last Admin: 04/13/17 08:27 Dose: 40 mg Furosemide (Lasix) 40 mg PO ONETIME ONE Stop: 04/14/17 08:01 Last Admin: 04/14/17 10:00 Dose: Not Given Furosemide (Lasix) 40 mg IVPUSH Q12H [facility] Last Admin: 04/17/17 09:27 Dose: 40 mg Levofloxacin/Dextrose 750 mg/ (Premix) 150 mls @ 100 mls/hr IV ONETIME ONE Stop: 04/11/17 03:21 Last Admin: 04/11/17 02:15 Dose: 100 mls/hr Sodium Chloride (Normal Saline) 1,000 mls @ 125 mls/hr IV ASDIRECTED [facility] Last Admin: 04/11/17 04:16 Dose: 125 mls/hr Levofloxacin/Dextrose 750 mg/ (Premix) 150 mls @ 100 mls/hr IV Q48H [facility] Last Admin: 04/12/17 12:18 Dose: 100 mls/hr Piperacillin Sod/Tazobactam (Sod 4.5 gm/ Sodium Chloride) 100 mls @ 100 mls/hr IV Q6H [facility] Piperacillin Sod/Tazobactam (Sod 3.375 gm/ Sodium Chloride) 50 mls @ 50 mls/hr IV Q6H [facility] Last Admin: 04/13/17 02:59 Dose: 50 mls/hr Vancomycin HCl 1 gm/ Sodium (Chloride) 250 mls @ 166.667 mls/hr IV Q12H [facility] Last Admin: 04/12/17 21:10 Dose: 166.667 mls/hr Sodium Chloride (Normal Saline) 500 mls @ 500 mls/hr IV ONETIME ONE Stop: 04/11/17 15:29 Last Admin: 04/11/17 14:30 Dose: 500 mls/hr Magnesium Sulfate 4 gm/ Premix 100 mls @ 25 mls/hr IV ONETIME ONE Stop: 04/12/17 15:26 Last Admin: 04/12/17 11:54 Dose: 25 mls/hr Magnesium Sulfate 2 gm/ Premix 50 mls @ 50 mls/hr IV ONETIME ONE Stop: 04/13/17 08:53 Last Admin: 04/13/17 08:27 Dose: 50 mls/hr Ciprofloxacin/Dextrose 400 mg/ (Premix) 200 mls @ 200 mls/hr IV Q12H [facility] Last Admin: 04/13/17 09:30 Dose: Not Given Magnesium Sulfate 2 gm/ Premix 50 mls @ 25 mls/hr IV ONETIME ONE Stop: 04/14/17 09:58 Last Admin: 04/14/17 09:35 Dose: 25 mls/hr Magnesium Sulfate 4 gm/ Premix 100 mls @ 25 mls/hr IV ONETIME ONE Stop: 04/16/17 13:10 Last Admin: 04/16/17 09:55 Dose: 25 mls/hr Ceftriaxone Sodium/Dextrose 1 (gm/ Premix) 50 mls @ 100 mls/hr IV Q24H [facility] Last Admin: 04/16/17 14:07 Dose: Not Given Sodium Chloride (Normal Saline) 500 mls @ 999 mls/hr IV .BOLUS [facility] Last Admin: 04/16/17 13:34 Dose: 999 mls/hr Ceftriaxone Sodium/Dextrose 1 (gm/ Premix) 50 mls @ 100 mls/hr IV Q24H [facility] Last Admin: 04/17/17 15:47 Dose: 100 mls/hr Magnesium Sulfate 2 gm/ Premix 50 mls @ 50 mls/hr IV ONETIME ONE Stop: 04/17/17 10:55 Last Admin: 04/17/17 10:33 Dose: 50 mls/hr Magnesium Sulfate 2 gm/ Premix 50 mls @ 25 mls/hr IV ONETIME ONE Stop: 04/18/17 10:16 Last Admin: 04/18/17 08:53 Dose: 25 mls/hr Levofloxacin (Levaquin) 750 mg PO Q48H [facility] Last Admin: 04/17/17 09:27 Dose: 750 mg Levothyroxine Sodium (Synthroid) 100 mcg PO DAILY [facility] Last Admin: 04/18/17 08:53 Dose: 100 mcg Lorazepam (Ativan) 1 mg IVPUSH ONETIME ONE Stop: 04/11/17 14:48 Last Admin: 04/11/17 15:50 Dose: Not Given Potassium Chloride (Klor-Con M20) 40 meq PO ONETIME ONE Stop: 04/12/17 11:59 Last Admin: 04/12/17 12:37 Dose: 40 meq Potassium Chloride (Klor-Con M20) 40 meq PO ONETIME ONE Stop: 04/15/17 08:38 Last Admin: 04/15/17 09:50 Dose: 40 meq Potassium Chloride (Klor-Con M20) 40 meq PO ONETIME ONE Stop: 04/16/17 09:12 Last Admin: 04/16/17 09:57 Dose: 40 meq Potassium Chloride (Klor-Con M20) 40 meq PO ONETIME ONE Stop: 04/17/17 09:57 Last Admin: 04/17/17 10:33 Dose: 40 meq Potassium Chloride (Klor-Con M20) 40 meq PO ONETIME ONE Stop: 04/18/17 08:17 Last Admin: 04/18/17 08:53 Dose: 40 meq Sodium Chloride (Saline Flush) 10 ml FLUSH ASDIRECTED PRN PRN Reason: Keep Vein Open Sodium Chloride (Saline Flush) 2.5 ml FLUSH ASDIRECTED PRN PRN Reason: Keep Vein Open Tramadol HCl (Ultram) 50 mg PO Q8H PRN PRN Reason: Pain Vancomycin HCl (Pharmacy To Dose - Vancomycin) 1 dose .XX ASDIRECTED FORTUNATO *Q Meaningful Use (DIS) - VTE *Q VTE Criteria *Q: - Stroke *Q Stroke Criteria *Q: - AMI *Q AMI Criteria *Q: - Free Text/Narrative Note: I have examined the patient. I have discussed findings and treatment plan with resident. I agree with the assessment and plan outlined in the following resident's note.
--- NOTE | 2017-04-18 17:59 | ECHO ---
The echocardiogram report can been seen in this patient's EMR (electronic medical record) in the Reports section. The echocardiogram report has also been scanned into PACS and can be seen there. CINTHYA
== END 2017-04-18 13:25 | DRG 205 ==
LOC: MW.ED 23:50 → MW.ICU 04-11 02:39 → MW.MS 04-13 20:36
PROVIDERS: ADMIT Internal Medicine; ATTEND Internal Medicine
DX: R09.02 Hypoxemia (principal); J18.9 Pneumonia, unspecified organism; N39.0 Urinary tract infection, site not specified; I50.30 Unspecified diastolic (congestive) heart failure; J90 Pleural effusion, not elsewhere classified; B96.20 Unspecified Escherichia coli [E. coli] as the cause of diseases classified elsewhere; D72.829 Elevated white blood cell count, unspecified; F03.90 Unspecified dementia, unspecified severity, without behavioral disturbance, psychotic disturbance, mood disturbance, and anxiety; I10 Essential (primary) hypertension; E03.9 Hypothyroidism, unspecified; M79.605 Pain in left leg; I48.91 Unspecified atrial fibrillation; R79.89 Other specified abnormal findings of blood chemistry; R74.8 Abnormal levels of other serum enzymes; I95.9 Hypotension, unspecified; Z79.899 Other long term (current) drug therapy
CPT/HCPCS: 71045; 80053; 83880; 84484; 85025; 85379; 85610; 87040; 87186; 87804 ×2; 94640; 96365; 99285; J1956; 36415; 80048; 81001; 83605; 83735; 87077; 87086; 93005; 93306; 93970; 93970-26; 96375; 97161-GP; 99283; A9270-GY; J0696; J1160; J1650; J1940; J2543; J3370; J3475; J3490; J7040; J7050